=== PATIENT | male | born 1935 | race Caucasian/White ===

== ENCOUNTER 2021-02-12 20:42 | Inpatient (IN) | payer MEDICARE, SELFPAY ==
[2021-02-12] VITALS (17 sets, daily range): BP systolic 120–138; BP diastolic 66–92; PULSE 84–101; RESP 10–24; TEMP 36.8; O2SAT 96–100
--- NOTE | ~2021-02-12 | XR_ITS ---
EXAMINATION: XR chest 2V DATE: 02/19/2021 12:08 INDICATION: Atelectasis TECHNIQUE: frontal and lateral views of the chest were obtained. COMPARISON: Chest radiograph dated 02/17/21 FINDINGS: Persistent airspace opacities along the right lung base without evident silhouetting of the diaphragm or intrapulmonary correlate on the lateral projection and favor a prominent left paracardial fat pad over atelectasis or pneumonia. Left lung remains clear. No pulmonary edema, pleural effusion or pneu mothorax. Cardiomegaly. Median sternotomy wires, ostial markers and mediastinal surgical clips consis tent with prior coronary artery bypass grafting. Mild thoracic spondylosis. IMPRESSION: 1. Persistent opacities at the right lung base and favor left paracardial fat pad over atelectasis or pneumonia. 2. Cardiomegaly. Reviewed, dictated and finalized at location A. IMPRESSION: 1. Persistent opacities at the right lung base and favor left paracardial fat p ad over atelectasis or pneumonia. 2. Cardiomegaly.
--- NOTE | ~2021-02-12 | CT_ITS ---
EXAMINATION: CT brain wo con DATE: 02/12/2021 21:51 INDICATION: Altered mental status. TECHNIQUE: Computed tomography (CT) of the head was performed without intravenous contrast. The mA wa s adjusted according to patient size. Iterative reconstruction technique was employed. The dose-lengt h product was 605.33 mGy-cm. COMPARISON: Head CT 07/31/2016, brain MRI 08/01/2016 FINDINGS: There are scattered areas of low attenuation in the cerebral white matter. There is a small old infarct in right frontoparietal region. There is an old infarct in right parietal occipital kalee on. There is no intracranial hemorrhage or abnormal mass lesion. The ventricles are normal in size. T here is mild mucosal thickening in the ethmoid sinuses. The orbits are normal. The mastoid air cells are normal. IMPRESSION: 1. 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 2. Moderate nonspecific cerebral white matter disease, which likely represents chronic small vessel i schemic disease. Reviewed, dictated and finalized at location A. IMPRESSION: 1. 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 2. Moderate nonspecific cerebral white matter disease, which likely represents chronic small vessel ischemic disease.
--- NOTE | ~2021-02-12 | CT_ITS ---
EXAMINATION: CT abdomen pelvis wo con DATE: 02/13/2021 00:13 INDICATION: Abdominal pain. Nausea and vomiting. TECHNIQUE: Computed tomography (CT) of the abdomen and pelvis was performed without intravenous contr ast. Automated exposure control and iterative reconstruction technique were employed. The dose-length product was 894.59 mGy-cm. COMPARISON: None. FINDINGS: The visualized portions of the lung bases demonstrate mild atelectasis. There is mild eleva tion of left hemidiaphragm. The heart size is normal. There is subendocardial fat in the anterior and anteroseptal hunt of left ventricle, consistent with old infarct. There are coronary artery calcifi cations. There are changes of coronary artery bypass grafting. No pericardial effusion. The liver, ga llbladder, spleen, and adrenal glands are normal. There are calcifications and cystic lesions measuri ng up to 2.0 cm in the pancreas, consistent with chronic pancreatitis. There are cysts in the kidneys measuring up to 10.4 cm on the right. There are 2 mm and 4 mm stones in right kidney. There is a rig ht internal ureteral stent with distal tip in the distal ureter. There are 2 mm and 8 mm stones in le ft kidney. There is a left internal ureteral stent in expected position. There are approximately 3 bl adder stones in a cluster measuring up to 6 mm. The bladder is decompressed by a Foster catheter. The prostate is mildly enlarged. There are no dilated loops of bowel. There is mild fat stranding adjacen t to the sigmoid colon and terminal ileum, likely old fat necrosis. There are no pathologically enlar ged lymph nodes. There is no free intraperitoneal fluid. There is a right inguinal hernia containing fat. There is a left inguinal hernia containing nonobstructed sigmoid colon. There is severe lumbar s pondylosis and thoracic spondylosis. IMPRESSION: 1. Left inguinal hernia containing nonobstructed sigmoid colon. 2. Right inguinal hernia containing fat. 3. Nonobstructing bilateral kidney stones. Bladder stones. Reviewed, dictated and finalized at location A.
--- NOTE | ~2021-02-12 | XR_ITS ---
EXAMINATION: XR chest 1V portable DATE: 02/17/2021 05:54 INDICATION: Shortness of breath. TECHNIQUE: A single frontal view of the chest was obtained. COMPARISON: Chest 2 views 02/13/2021, CT abdomen and pelvis 02/13/2021 FINDINGS: There are mild airspace opacities in right lower lung zone. No pleural effusion or pneumoth orax. The heart size is normal. Median sternotomy wires and mediastinal surgical clips are seen, like ly from prior coronary artery bypass grafting. IMPRESSION: 1. Worsened mild airspace opacities in right lower lung zone, consistent with atelectasis versus pneu monia. Reviewed, dictated and finalized at location A. IMPRESSION: 1. Worsened mild airspace opacities in right lower lung zone, consistent with a telectasis versus pneumonia.
--- NOTE | ~2021-02-12 | XR_ITS ---
EXAMINATION: XR chest 2V DATE: 02/13/2021 00:19 INDICATION: Sepsis. Confusion. TECHNIQUE: Frontal and lateral views of the chest were obtained. COMPARISON: Chest 2 views 04/05/2013, CT abdomen and pelvis 02/13/2021 FINDINGS: There is chronic mild elevation of left hemidiaphragm. There is mild atelectasis at the elsa g bases. No pleural effusion or pneumothorax. The heart size is normal. Median sternotomy wires and m ediastinal surgical clips are seen, likely from prior coronary artery bypass grafting. IMPRESSION: 1. Mild atelectasis at the lung bases. Reviewed, dictated and finalized at location A.
--- NOTE | 2021-02-12 20:55 | ECG_ITS ---
Measurements Intervals Howe Rate: 102 P: 62 KS: 197 QRS: -4 QRSD: 121 T: 155 QT: 332 QTc: 433 Interpretive Statements SINUS OR ECTOPIC ATRIAL TACHYCARDIA FREQUENT VENTRICULAR PREMATURE COMPLEXES INTRAVENTRICULAR CONDUCTION DELAY MINIMAL Q WAVES- ANTEROLATERAL LEADS INFERIOR INFARCT, AGE INDETERMINATE BASELINE ARTIFACT- II, III, AVF ABNORMAL ECG Electronically Signed On 02-13-2021 7:06:30 CDT by Chris Vickers D.O.
--- NOTE | 2021-02-12 20:55 | ED.WEAKNESS ---
HPI - Weakness General Chief complaint: Weakness Stated complaint: weakness Time Seen by Provider: 02/12/21 20:55 History of Present Illness HPI Narrative: He recently presented to [facility] for shingles. He completed treatment with valacyclovir. While in the hospital there he was found to have large bilateral kidney stones. He was then transferred to [facility] for lithotripsy and ureteral stent placement. Required benz placement for urinary retention. Since discharge he has become increasingly weak and confused. Today he pulled out his benz and has not been able to pass urine since. No fever, CP, SOB Related Data Home Medications Medication Instructions Recorded Confirmed clopidogrel 02/12/21 doxazosin mg 02/12/21 empagliflozin [Jardiance] mg 02/12/21 finasteride mg 02/12/21 furosemide 02/12/21 gabapentin 02/12/21 isosorbide mononitrate mg PO 02/12/21 lisinopril 02/12/21 rosuvastatin mg 02/12/21 valacyclovir 02/12/21 Allergies Allergy/AdvReac Type Severity Reaction Status Date / Time No Known Allergies Allergy Unknown Verified 02/12/21 20:46 Review of Systems Review of Systems: ROS unobtainable: Yes unobtainable due to medical condition [facility] Past Medical History Medical History (Updated 02/12/21 @ 22:59 by Golden Ordonez MD) BPH (benign prostatic hyperplasia) CHF (congestive heart failure) HTN (hypertension) Kidney stone Surgical History Surgical History (Updated 02/12/21 @ 22:56 by Golden Ordonez MD) H/O lithotripsy Social History Social History Gender identity (if verbalized by the patient): Male Exam Const: General: no acute distress Nutritional Appearance: well nourished Orientation/consciousness: confusion Other: listless. lethargic HENMT: Mouth: Yes dry mucous membranes Eyes: Pupils: Equal, round and reactive pupils present Resp: Effort & Inspection: normal respiratory effort Auscultation: clear to auscultation bilaterally Cardio: Rate: regular rate Rhythm: regular rhythm GI: GI Palp: Yes Soft to palpation : General: Yes Bladder palpation abnormal distended and tender Skin: General skin exam: normal color Neuro: General: moves all extremities, no focal motor deficits and CN's II-XI intact bilaterally Speech: normal speech Other: oriented x2 Extrem: General: no edema Course Vital Signs Vital signs: Vital Signs Temperature 36.8 C 02/12/21 20:48 Pulse Rate 100 02/12/21 20:48 Respiratory Rate 17 02/12/21 20:48 Blood Pressure 138/92 H 02/12/21 20:48 Pulse Oximetry 96 02/12/21 20:48 Temperature 36.8 C 02/12/21 20:58 Pulse Rate 86 02/12/21 22:01 Respiratory Rate 18 02/12/21 22:01 Blood Pressure 121/80 02/12/21 22:00 Pulse Oximetry 100 02/12/21 22:01 MDM - Weakness Differential Diagnosis Differential diagnosis: Likely other (UTI, urinary retention, dehydration, sepsis, shingles) Medical Records Attestation: I reviewed the patient's medical records. Lab Data Attestation: I reviewed the patient's lab results. Result diagrams: 02/12/21 21:02 02/12/21 21:33 Labs: Lab Results 02/12/21 02/12/21 02/12/21 Range/Units 21:02 21:33 21:33 WBC 21.0 H (4.5-10.0) K/mm3 RBC 4.40 L (4.6-6.20) M/mm3 Hgb 14.1 (14.0-18.0) g/dL Hct 41.9 L (42.0-52.0) % MCV 95.2 (80-100) fl MCH 32.0 (26-34) pg MCHC 33.7 (32-36) g/dl RDW 14.5 (11.5-14.5) % Plt Count 372 (150-375) k/mm3 MPV 9.9 (7.4-10.4) fl Immature Gran % (Auto) 0.5 (0-0.5) % Neut % (Auto) 90.5 H (45.5-73.1) % Lymph % (Auto) 2.9 L (18.3-44.2) % Sumner % (Auto) 5.7 (2.6-8.5) % Eos % (Auto) 0.3 (0-4.4) % Baso % (Auto) 0.1 L (0.2-1.2) % Lymph # (Auto) 0.60 L (0.9-3.2) K/mm3 Sumner # (Auto) 1.2 H (0.1-0.6) K/mm3 Eos # (Auto) 0.1 (0-0.3) K/mm3 Baso # (Auto) 0.0 (0.0-0.1) K/mm3 Abs Immat Gran (auto) 0.11 H (0.00-0.031) K/mm3
[2021-02-12 21:08] LABS: Basophils Percent Auto 0.1 % (0.2-1.2); Eosinophils Absolute Auto 0.1 K/mm3 (0-0.3); Eosinophils Percent Auto 0.3 % (0-4.4); Hematocrit 41.9 % (42.0-52.0); Hemoglobin 14.1 g/dL (14.0-18.0); Immature Granulocyte Absolute 0.11 K/mm3 (0.00-0.031); Immature Granulocyte Percent A 0.5 % (0-0.5); Lymphocytes Percent Auto 2.9 % (18.3-44.2); Mean Corpuscular HGB Conc 33.7 g/dl (32-36); Mean Corpuscular Volume 95.2 fl (80-100); Mean Platelet Volume 9.9 fl (7.4-10.4); Monocytes Absolute Auto 1.2 K/mm3 (0.1-0.6); Monocytes Percent Auto 5.7 % (2.6-8.5); Neutrophils Percent Auto 90.5 % (45.5-73.1); Platelet Count Result 372 k/mm3 (150-375); Red Cell Distribution Width 14.5 % (11.5-14.5)
[2021-02-12] MEDS: SODIUM CHLORIDE 0.9% IV 500 ML 999 ML IV CONT (21:23)
[2021-02-12 21:50] LABS: Add Urine Microscopic? YES; Appearance Urine Cloudy (Clear); Bacteria Urine Trace /hpf; Bilirubin Urine Negative (Negative); Blood Urine 3+ (Negative); Color Urine Yellow (Yellow); Glucose Urine UA 3+ mg/dL (Negative); Ketones Urine Negative (Negative); Leukocyte Esterase Ur 1+ LEU/UL (Negative); Mucus Urine Rare /lpf; Nitrate Urine Negative (Negative); Protein Urine 2+ mg/dL (Negative); RBC Urine >75 /hpf (0-2); Squamous Epithelial Cell Urine Rare /hpf (Few); Urobilinogen Urine Negative mg/dL (<2.0); WBC Urine 16-20 /hpf
[2021-02-12 21:52] LABS: Alanine Aminotransferase 19 U/L (4-50); Albumin Level 2.8 g/dL (3.5-5.1); Alkaline Phosphatase 101 U/L (38-126); Anion Gap 2 mmol/L (8-16); Aspartate Amino Transferase 20 U/L (17-59); Bilirubin,Total 0.5 mg/dL (0.2-1.3); Blood Urea Nitrogen 67 mg/dL (9-20); Calcium 9.6 mg/dL (8.4-10.2); Carbon Dioxide 28 mmol/L (22-30); Chloride 106 mmol/L (98-107); Estimated CRCL calculation 30 ml/min; Estimated Glomerular Filt Rate 41; Glucose 253 mg/dL (75-110); Potassium 4.8 mmol/L (3.4-5.0); Sodium 136 mmol/L (137-145)
--- NOTE | 2021-02-12 23:40 | PM.IMHP ---
H&P: HPI History of Present Illness Date/Time: 02/12/21 23:40 Chief Complaint: confusion, urinary retention Narrative: 85 yo male ru presents with increased confusion, agitation. he was recently diagnosed with left upper chest and back shingles which has caused significant amount of pain. he was started on antiviral along with hydrocodone and gabapentin. He was subsequenlty diagnsoed with large bialteral kidney stones and then was admitted at [facility] for lithotripsy which was done and ureteral stent was placed. He had BPH and bud had a benz cathtere placement there and was disccahrged on it. With increased agitation and confusion, he had pulled his benz out. He also started having multiple episodes of vomiting today and hence was brought to the hospital for further evaluation. He denies having any fever, chills, no sob, chest pain. He rpeorts his abdomen is sore but denies any nausea. He is significnatly distressed with porsche severe pain that he gets from his shingles. He has also been not sleeping well over the past few days and also has been having poor po intake. Review of Systems Constitutional: Constitutional: Denies body ache(s), Denies chills, Reports difficulty sleeping, Reports fatigue, Reports lethargy, Denies night sweats and Reports weakness Eyes: Eyes: Denies blurry vision and Denies photophobia ENT: Denies nasal congestion and Denies nasal discharge Cardiovascular: Cardiovascular: Denies chest pain, Denies diaphoresis and Denies palpitations Respiratory: Respiratory: Denies cough and Denies dyspnea Gastrointestinal: Gastrointestinal: Reports abdominal pain, Reports constipation, Denies diarrhea, Reports nausea and Reports vomiting Genitourinary: Genitourinary: Reports hematuria Musculoskeletal: Musculoskeletal: Denies back pain and Denies neck pain Integumentary/Breasts: Skin/Breast: Reports dry skin, Reports rash and Reports skin pain Neurologic: Denies Abnormal speech present, Reports confusion and Denies headache(s) Psychiatric: Psychiatric: Reports behavioral changes and Reports confusion PMF Past Medical History Medical History (Updated 02/12/21 @ 23:56 by Ulysses Araiza MD) BPH (benign prostatic hyperplasia) CHF (congestive heart failure) HTN (hypertension) Kidney stone Surgical History Surgical History (Updated 02/12/21 @ 22:56 by Golden Ordonez MD) H/O lithotripsy Social History Social History Gender identity (if verbalized by the patient): Male Meds Home Medications and Allergies Home Medications Medication Instructions Recorded Confirmed Type clopidogrel 02/12/21 History doxazosin mg 02/12/21 History empagliflozin [Jardiance] mg 02/12/21 History finasteride mg 02/12/21 History furosemide 02/12/21 History gabapentin 02/12/21 History isosorbide mononitrate mg PO 02/12/21 History lisinopril 02/12/21 History rosuvastatin mg 02/12/21 History valacyclovir 02/12/21 History Allergies Allergy/AdvReac Type Severity Reaction Status Date / Time No Known Allergies Allergy Unknown Verified 02/12/21 20:46 Vital Signs Vital Signs - 24 hr 02/12/21 20:48 02/12/21 20:54 02/12/21 20:58 Temperature 98.3 F 98.3 F Pulse Rate 100 98 98 Respiratory Rate 17 17 Blood Pressure 138/92 H 138/92 H Pulse Oximetry 96 96 02/12/21 21:21 02/12/21 21:48 02/12/21 21:55 Temperature Pulse Rate 88 86 84 Respiratory Rate 14 10 L 13 Blood Pressure 128/66 Pulse Oximetry 100 100 02/12/21 22:00 02/12/21 22:01 02/12/21 22:15 Temperature Pulse Rate 84 86 94 Respiratory Rate 19 18 24 H Blood Pressure 121/80 Pulse Oximetry 99 100 02/12/21 22:30 02/12/21 22:45 02/12/21 22:52 Temperature Pulse Rate 91 88 89 Respiratory Rate 19 17 15 Blood Pressure 120/74 Pulse Oximetry 97 97 99 02/12/21 23:00 Temperature Pulse Rate 90 Respiratory Rate 22 H Blood Pressure Pulse Oximetry Exam Narrative: Exam Narrative: Const:
[2021-02-13] VITALS (13 sets, daily range): BP systolic 78–144; BP diastolic 47–77; PULSE 37–94; RESP 10–20; TEMP 36.1–37.1; O2SAT 70–100; BMI 23.7
[2021-02-13 00:05] LABS: Hemoglobin A1C 9.6 % (<5.7)
--- NOTE | 2021-02-13 00:45 | ADMGEN ---
This patient, Ant Sher, was admitted to 3 [facility] Surg Room 330-01 at 0020. Patient/family oriented to hospital policies and general routines including ID bracelet, bed and alarms, visiting hours, pain management, procedures, bathroom and other care routines, personal items, smoking policy, room service/diet, and visiting hours. Information on how to activate the Rapid Response Team has been discussed. Patient/Family are encouraged to report perceived risks to care and to ask questions if they do not understand what they are told or what they should do.
[2021-02-13 01:32] LABS: Lactic Acid Reflex 1.4 mmol/L (0.7-2.1)
[2021-02-13] MEDS: SODIUM CHLORIDE 0.9% IV 1,000 ML 100 ML IV CONT (02:45)
[2021-02-13 06:02] LABS: Basophils Percent Auto 0.1 % (0.2-1.2); Eosinophils Absolute Auto 0.1 K/mm3 (0-0.3); Eosinophils Percent Auto 0.7 % (0-4.4); Hematocrit 40.1 % (42.0-52.0); Hemoglobin 13.5 g/dL (14.0-18.0); Immature Granulocyte Absolute 0.12 K/mm3 (0.00-0.031); Immature Granulocyte Percent A 0.7 % (0-0.5); Lymphocytes Absolute Auto 0.97 K/mm3 (0.9-3.2); Lymphocytes Percent Auto 5.4 % (18.3-44.2); Mean Corpuscular HGB Conc 33.7 g/dl (32-36); Mean Corpuscular Hemoglobin 32.1 pg (26-34); Mean Corpuscular Volume 95.5 fl (80-100); Mean Platelet Volume 9.8 fl (7.4-10.4); Monocytes Absolute Auto 1.1 K/mm3 (0.1-0.6); Monocytes Percent Auto 6.3 % (2.6-8.5); Neutrophils Absolute Auto 15.8 K/mm3 (1.3-6.7); Neutrophils Percent Auto 86.8 % (45.5-73.1); Platelet Count Result 329 k/mm3 (150-375); Red Cell Distribution Width 14.6 % (11.5-14.5); White Blood Count 18.1 K/mm3 (4.5-10.0)
[2021-02-13 06:19] LABS: Anion Gap 4 mmol/L (8-16); Blood Urea Nitrogen 62 mg/dL (9-20); Calcium 9.1 mg/dL (8.4-10.2); Carbon Dioxide 22 mmol/L (22-30); Chloride 109 mmol/L (98-107); Estimated CRCL calculation 40 ml/min; Estimated Glomerular Filt Rate 53; Glucose 242 mg/dL (75-110); Potassium 4.4 mmol/L (3.4-5.0); Sodium 135 mmol/L (137-145)
[2021-02-13 08:01] LABS: Glucose Point of Care 264 (65-105)
[2021-02-13] MEDS: INSULIN ASPART (*BKC) 100 UNITS/ML SUB-Q ×3 (09:08→17:43)
[2021-02-13] MEDS: DOXAZOSIN MESYLATE 4 MG TABLET PO (09:10)
[2021-02-13] MEDS: ROSUVASTATIN 10 MG TABLET 20 MG PO (09:10)
[2021-02-13] MEDS: FINASTERIDE 5 MG TABLET PO (09:10)
[2021-02-13] MEDS: lisinopriL 20 MG TABLET PO (09:10)
[2021-02-13] MEDS: ENOXAPARIN 40 MG/0.4 ML SYRINGE SUB-Q (09:11)
--- NOTE | 2021-02-13 10:16 | P.PNIM_ITS ---
Progress Note: A&P Assessment and Plan (1) Severe sepsis: Code(s): A41.9 - Sepsis, unspecified organism; R65.20 - Severe sepsis without septic shock Status: Acute Assessment and Plan: Met SIRS criteria with leukocytosis and tachycardia while in ED with urinary as suspected source. Lacitic acid WNL. Patient started on Rocephin in ED (1 dose); this was broadened to Zosyn and Vanc (vanc d/c today). BCx and UCx obtained and pending * Continue for treatment of UTI for now; see below * Will do IV fluids; d/c after completion of current bag as to avoid volume overload with CHF * Monitor for improvement (2) UTI (urinary tract infection): Code(s): N39.0 - Urinary tract infection, site not specified Status: Acute Assessment and Plan: UA suspicious for UTI. UCx pending. Recent urological procedure, see below. Patient received one dose Rocephin in ED; broadened to Zosyn and vanc when admitted; vanc has been discontinued today. * Continue Zosyn for now * Await UCx and BCx; tailor antibiotics to culture * Monitor closely (3) Multiple kidney stones: Code(s): N20.0 - Calculus of kidney Status: Acute Assessment and Plan: Patient recently underwent lithotripsy and left ureteral stent placement at [facility]. Urology consulted from ED and appreciate input. CT abd/pelvis shows multiple nonobstructing b/l stones; stent in expected position; incidental b/l inguinal hernias noted - left contains nonobstructed colon, right contains fat * Await further rec from Urology * Monitor * Treat for UTI as noted above (4) REX (acute kidney injury): Code(s): N17.9 - Acute kidney failure, unspecified Status: Acute Assessment and Plan: Likely secondary to acute dehydration, sepsis. Cr improved to 1.30 today with IVF * Hold Lasix * Resume Lisinopril * Complete bag of IVF today as to avoid volume overload * Monitor (5) Acute urinary retention: Code(s): R33.8 - Other retention of urine Status: Acute Assessment and Plan: Likely from BPH * Continue Foster * Continue Proscar * Appreciate Urology input (6) Generalized weakness: Code(s): R53.1 - Weakness Status: Acute Assessment and Plan: Likely secondary to infection * PT/OT eval (7) Shingles: Code(s): B02.9 - Zoster without complications Status: Acute Assessment and Plan: * Treat symptomatically and with local wound care * Will consider Wound Care consult for arm lesions (8) Acute encephalopathy: Code(s): G93.40 - Encephalopathy, unspecified Status: Acute Assessment and Plan: Likely secondary to narcotics and gabapentin. Seems to be more lucid today * d/c haloperidol * Hold gabapentin * Will reduce narcotics; attempt to limit narcotics if possible * ST eval today; appreciate input. Likely will reassess in next several days (9) Abdominal pain: Code(s): R10.9 - Unspecified abdominal pain Status: Acute Assessment and Plan: Continues but improved; likely from stones. See CT abd/pelvis above * see above a/p (10) Cerebral infarction: Code(s): I63.9 - Cerebral infarction, unspecified Status: Acute
--- NOTE | 2021-02-13 10:16 | PM.IMPN ---
Progress Note: A&P Assessment and Plan (1) Severe sepsis: Code(s): A41.9 - Sepsis, unspecified organism; R65.20 - Severe sepsis without septic shock Status: Acute Assessment and Plan: Met SIRS criteria with leukocytosis and tachycardia while in ED with urinary as suspected source. Lacitic acid WNL. Patient started on Rocephin in ED (1 dose); this was broadened to Zosyn and Vanc (vanc d/c today). BCx and UCx obtained and pending Continue for treatment of UTI for now; see below Will do IV fluids; d/c after completion of current bag as to avoid volume overload with CHF Monitor for improvement (2) UTI (urinary tract infection): Code(s): N39.0 - Urinary tract infection, site not specified Status: Acute Assessment and Plan: UA suspicious for UTI. UCx pending. Recent urological procedure, see below. Patient received one dose Rocephin in ED; broadened to Zosyn and vanc when admitted; vanc has been discontinued today. Continue Zosyn for now Await UCx and BCx; tailor antibiotics to culture Monitor closely (3) Multiple kidney stones: Code(s): N20.0 - Calculus of kidney Status: Acute Assessment and Plan: Patient recently underwent lithotripsy and left ureteral stent placement at [facility]. Urology consulted from ED and appreciate input. CT abd/pelvis shows multiple nonobstructing b/l stones; stent in expected position; incidental b/l inguinal hernias noted - left contains nonobstructed colon, right contains fat Await further rec from Urology Monitor Treat for UTI as noted above (4) REX (acute kidney injury): Code(s): N17.9 - Acute kidney failure, unspecified Status: Acute Assessment and Plan: Likely secondary to acute dehydration, sepsis. Cr improved to 1.30 today with IVF Hold Lasix Resume Lisinopril Complete bag of IVF today as to avoid volume overload Monitor (5) Acute urinary retention: Code(s): R33.8 - Other retention of urine Status: Acute Assessment and Plan: Likely from BPH Continue Foster Continue Proscar Appreciate Urology input (6) Generalized weakness: Code(s): R53.1 - Weakness Status: Acute Assessment and Plan: Likely secondary to infection PT/OT eval (7) Shingles: Code(s): B02.9 - Zoster without complications Status: Acute Assessment and Plan: Treat symptomatically and with local wound care Will consider Wound Care consult for arm lesions (8) Acute encephalopathy: Code(s): G93.40 - Encephalopathy, unspecified Status: Acute Assessment and Plan: Likely secondary to narcotics and gabapentin. Seems to be more lucid today d/c haloperidol Hold gabapentin Will reduce narcotics; attempt to limit narcotics if possible ST eval today; appreciate input. Likely will reassess in next several days (9) Abdominal pain: Code(s): R10.9 - Unspecified abdominal pain Status: Acute Assessment and Plan: Continues but improved; likely from stones. See CT abd/pelvis above see above a/p (10) Cerebral infarction: Code(s): I63.9 - Cerebral infarction, unspecified Status: Acute Assessment and Plan: Plavix has been held for possible procedure (11) Diabetes mellitus: Code(s): E11.9 - Type 2 diabetes mellitus without complications Status: Acute Assessment and Plan: A1c 9.6. Accuchecks ACHS, hypoglycemia protocol, correctional insulin, diabetic diet Jardiance held as this is nf Will need f/u with PCP for further adustments in me
[2021-02-13] MEDS: ISOSORBIDE MONONITRATE 30 MG TAB.ER.24H PO (11:38)
[2021-02-13 12:28] LABS: Glucose Point of Care 322 (65-105)
[2021-02-13] MEDS: HYDROcodone/acetaminophen (*CRX) 5-325 MG TABLET 1 TAB PO (12:33)
[2021-02-13] MEDS: MORPHINE SULFATE (*CRX) 2 MG/ML INJ IV PUSH (12:34)
--- NOTE | 2021-02-13 13:07 | WPDURCON ---
Assessment and Plan Assessment and plan (1) Multiple kidney stones: Code(s): N20.0 - Calculus of kidney Status: Acute Assessment and Plan: Will plan to remove bilateral ureteral stents later this week while in house, once infection improves and cultures are resulted. Obtain Consent: Cystoscopy, bilateral ureteroscopy, bilateral stent removal, bilateral retrograde pyelogram. Will schedule with OR, likely will be done with DR. Shultz. (2) REX (acute kidney injury): Code(s): N17.9 - Acute kidney failure, unspecified Status: Acute (3) UTI (urinary tract infection): Code(s): N39.0 - Urinary tract infection, site not specified Status: Acute Assessment and Plan: Continue Zosyn, WBC is improving, ok to stop Vancomycin. (4) Acute urinary retention: Code(s): R33.8 - Other retention of urine Status: Acute Assessment and Plan: Continue benz catheter, will need to be changed monthly. If patient continues to try to pull it out, we can try a voiding trial and assess PVR. Urology Consult Note HPI Date Seen: 02/13/21 Requesting Physician: Ady Carmichael PA-C Primary Care Provider: Ady Payne MD Consult Narrative Narrative: Ant Sher is a 85 year old male who was seen in the ER yesterday for weakness and worsening confusion. He pulled his benz out at home as well. He was previously seen in the ER at [facility] for shingles, but incidentally was found to have bilateral stones causing hydronephrosis and was transferred to [facility] where Dr. Carrasco performed a cystoscopy, bilateral ureteroscopy and stone extraction with bilateral stent placement on 01/31/2021. He was then sent home where he lives with his who has dementia and end stage CKD. He also suffers from dementia and is cared for 24/06 by family and paid caregivers. He was scheduled for a follow up today with Dr. Carrasco for stent removal which was cancelled d/t his hospitalization. He currently has a WBC of 18.1 which is trending down since starting Vancomycin and Zosyn. His Creatinine is 1.30, he is afebrile but is hypertensive which is daughter says is not normal for him. He is usually well controlled with BP meds. His blood cultures and urine cultures are pending, UA is suggestive of a UTI, but it is difficult to tell as he has bilateral stents which can portray infected appearing urine. His CT shows non obstructive kidney stones 2mm and 8mm in the left kidney and 2 and 4mm in the right kidney, as well as 3 bladder stones measuring up to 6mm, as well as bilateral stents in place. He is unable to provide any medical history and states he is not in pain but is very fatigued. He does c/o pain from his shingles in the left axilla. I called his daughter Kaity who provided all of his medical history to me as she is a caregiver and POA. Review of Systems Review of Systems: ROS unobtainable: Yes unobtainable due to mental status Constitutional: Constitutional: Reports fatigue Musculoskeletal: Musculoskeletal: Reports other (left axilla pain) [facility] Past Medical History Medical History BPH (benign prostatic hyperplasia) CHF (congestive heart failure) HTN (hypertension) Kidney stone Surgical History Surgical History H/O lithotripsy Social History Social History Smoking status: Unknown if ever smoked Second hand tobacco smoke exposure: No Alcohol intake: unknown Substance use: never Gender identity (if verbalized by the patient): Male Spiritual care concerns: No Meds Home Medications and Allergies Home Medications Medication Instructions Recorded Confirmed Type clopidogrel [Plavix] 75 mg PO DAILY 02/12/21 02/13/21 History doxazosin 4 mg PO DAILY 02/12/21 02/13/21 History empagliflozin [Jardiance] 10 mg PO DAILY
--- NOTE | 2021-02-13 14:11 | PCPTNOTE ---
Attempted PT eval. Pt was sleeping and daughter refused therapy. Will try again tomorrow.
[2021-02-13] MEDS: SILVERGEL (ELTA) 45 ML 1 APPLIC TOPICAL (15:59)
[2021-02-13 16:54] LABS: Glucose Point of Care 265 (65-105)
[2021-02-13] MEDS: predniSONE 10 MG TABLET PO (17:34)
[2021-02-13] MEDS: METOPROLOL TARTRATE 50 MG TAB PO ×2 (17:38→20:04)
[2021-02-13 20:53] LABS: Glucose Point of Care 157 (65-105)
[2021-02-13] MEDS: SODIUM CHLORIDE 0.9% IV 500 ML 999 ML (22:19)
[2021-02-13] MEDS: SODIUM CHLORIDE 0.9% IV 500 ML 999 ML IV CONT (22:19)
[2021-02-14] VITALS (9 sets, daily range): BP systolic 79–104; BP diastolic 49–62; PULSE 59–77; RESP 16–20; TEMP 36.1–36.4; O2SAT 96–99
--- NOTE | 2021-02-14 04:17 | PC.NURSE ---
Rechecked patients BP after second IV bolus at 22:53 and he was 90/60. Left message with Dr. Carnes to update him. Rechecked patient at 04:18 after little improvement in the 00:00 vitals, patient was 94/54. Did not receive further instruction from the doctor, patient feeling much more warm to the touch and is more arousable now, all other VS are unremarkable. Patient still on oxygen at 2L, satting @ 98% at this point. Pulse was 56 bpm. -AEW RN
--- NOTE | 2021-02-14 05:01 | PC.NURSE ---
Changed Mr. Sher to standard precautions per Elena (greenhouse technician) who spoke to infection control, because the patient finished his course of anti-viral medications. -AEW RN
[2021-02-14 06:27] LABS: Basophils Percent Auto 0.1 % (0.2-1.2); Eosinophils Percent Auto 0.1 % (0-4.4); Hematocrit 31.9 % (42.0-52.0); Hemoglobin 10.4 g/dL (14.0-18.0); Immature Granulocyte Absolute 0.09 K/mm3 (0.00-0.031); Immature Granulocyte Percent A 0.6 % (0-0.5); Lymphocytes Absolute Auto 0.53 K/mm3 (0.9-3.2); Lymphocytes Percent Auto 3.4 % (18.3-44.2); Mean Corpuscular HGB Conc 32.6 g/dl (32-36); Mean Corpuscular Hemoglobin 31.3 pg (26-34); Mean Corpuscular Volume 96.1 fl (80-100); Mean Platelet Volume 10.1 fl (7.4-10.4); Monocytes Absolute Auto 0.7 K/mm3 (0.1-0.6); Monocytes Percent Auto 4.6 % (2.6-8.5); Neutrophils Absolute Auto 14.2 K/mm3 (1.3-6.7); Neutrophils Percent Auto 91.2 % (45.5-73.1); Platelet Count Result 267 k/mm3 (150-375); Red Blood Count 3.32 M/mm3 (4.6-6.20); Red Cell Distribution Width 14.8 % (11.5-14.5); White Blood Count 15.6 K/mm3 (4.5-10.0)
[2021-02-14 06:36] LABS: Anion Gap 1 mmol/L (8-16); Blood Urea Nitrogen 70 mg/dL (9-20); Calcium 8.2 mg/dL (8.4-10.2); Carbon Dioxide 25 mmol/L (22-30); Chloride 111 mmol/L (98-107); Estimated CRCL calculation 29 ml/min; Estimated Glomerular Filt Rate 36; Glucose 136 mg/dL (75-110); Magnesium 2.2 mg/dL (1.6-2.3); Potassium 4.5 mmol/L (3.4-5.0); Sodium 137 mmol/L (137-145)
[2021-02-14 08:19] LABS: Glucose Point of Care 124 (65-105)
[2021-02-14] MEDS: SODIUM CHLORIDE 0.9% IV 1,000 ML 100 ML IV CONT (09:19)
[2021-02-14] MEDS: ROSUVASTATIN 10 MG TABLET 20 MG PO (09:29)
[2021-02-14] MEDS: predniSONE 10 MG TABLET PO (09:30)
[2021-02-14] MEDS: FINASTERIDE 5 MG TABLET PO (09:30)
[2021-02-14] MEDS: ENOXAPARIN 40 MG/0.4 ML SYRINGE SUB-Q (09:30)
[2021-02-14] MEDS: DOXAZOSIN MESYLATE 4 MG TABLET PO (09:30)
[2021-02-14] MEDS: SILVERGEL (ELTA) 45 ML 1 APPLIC TOPICAL (09:31)
--- NOTE | 2021-02-14 10:34 | PCPTNOTE ---
Attempted PT eval. Donta RN, stated to hold therapy due to low BP. Will try again later today.
--- NOTE | 2021-02-14 10:43 | PM.IMPN ---
Progress Note: A&P Assessment and Plan (1) Severe sepsis: Code(s): A41.9 - Sepsis, unspecified organism; R65.20 - Severe sepsis without septic shock <Caren Kruse PA-C - Last Filed: 02/15/21 07:14> Status: Acute <Caren Kruse PA-C - Last Filed: 02/15/21 07:14> Assessment and Plan: Met SEPSIS criteria with leukocytosis and tachycardia while in ED with urinary as suspected source with recent Cystoscopy with stent placement. Lacitic acid WNL. Patient started on Rocephin in ED and given 1 dose; this was broadened to Zosyn and Vanc (vanc d/c 02/13/21 after 1 dose). BCx pending Urine Culture shows no growth. CXR shows atelectasis at lung bases, patient was placed on oxygen last night after being found to be hypotensive which was believed to be from having Narcotics for pain Continue IV fluids due to hypotension and antibiotics at this time with IV Zosyn Continue monitoring. <Caren Kruse PA-C - Last Filed: 02/15/21 07:14> (2) Hypotension: Code(s): I95.9 - Hypotension, unspecified <Caren Kruse PA-C - Last Filed: 02/15/21 07:14> Status: Acute <Caren Kruse PA-C - Last Filed: 02/15/21 07:14> Assessment and Plan: Patient developed hypotension overnight, a nurse believes it is secondary to giving him narcotic pain medications. He was given fluid boluses with improvement of his blood pressure. Blood pressure this morning was 88/50, and another 500 cc bolus of NS was given and continued with IV fluids 100 cc an hour. Blood pressure improved to 104/62. Continue monitoring <Caren Kruse PA-C - Last Filed: 02/15/21 07:14> (3) REX (acute kidney injury): Code(s): N17.9 - Acute kidney failure, unspecified <Caren Kruse PA-C - Last Filed: 02/15/21 07:14> Status: Acute <Caren Kruse PA-C - Last Filed: 02/15/21 07:14> Assessment and Plan: Likely secondary to acute dehydration, sepsis. Cr increased to 1.80 today most likely secondary to hypotension overnight Continue IV fluids, discontinue Lasix, Potassium and BP medications Lisiniopril and Imdur at this time. Hold Lasix Resume Lisinopril Complete bag of IVF today as to avoid volume overload Monitor <Caren Kruse PA-C - Last Filed: 02/15/21 07:14> (4) UTI (urinary tract infection): Code(s): N39.0 - Urinary tract infection, site not specified <Caren Kruse PA-C - Last Filed: 02/15/21 07:14> Status: Acute <Caren Kruse PA-C - Last Filed: 02/15/21 07:14> Assessment and Plan: UA suspicious for UTI. UCx shows no growth. Patient did have a recent urological procedure, with stent placement. Patient received one dose Rocephin in ED; broadened to Zosyn and vanc when admitted; vanc has been discontinued 02/13/21. Continue Zosyn for now Pending blood culture results. Monitor closely <Caren Kruse PA-C - Last Filed: 02/15/21 07:14> (5) Multiple kidney stones: Code(s): N20.0 - Calculus of kidney <Caren Kruse PA-C - Last Filed: 02/15/21 07:14> Status: Acute <REGINA Brar Last Filed: 02/15/21 07:14> Assessment and Plan: Patient recently underwent lithotripsy and left ureteral stent placement at [facility]. Urology consulted from ED and appreciate input. CT abd/pelvis shows multiple nonobstructing b/l stones; stent in expected position; incidental b/l inguinal hernias noted - left contains nonobstructed colon, right contains fat Await further rec from Urology Monitor Treat for UTI as noted above <Caren Kruse PA-C - Last Filed: 02/15/21 07:14> (6) Acute urinary retention: Code(s): R33.8 - Other retention of urine <Ally
[2021-02-14 11:36] LABS: Glucose Point of Care 138 (65-105)
[2021-02-14] MEDS: GABAPENTIN 100 MG CAPSULE PO ×2 (12:25→17:12)
[2021-02-14 13:38] LABS: CRP 0.7 mg/dL (<1.0)
[2021-02-14 16:46] LABS: Glucose Point of Care 227 (65-105)
[2021-02-14] MEDS: INSULIN ASPART (*BKC) 100 UNITS/ML SUB-Q (17:11)
[2021-02-14 20:24] LABS: Glucose Point of Care 205 (65-105)
[2021-02-15] VITALS (18 sets, daily range): BP systolic 66–131; BP diastolic 30–66; PULSE 77–117; RESP 16–20; TEMP 36.1–37.1; O2SAT 92–100
[2021-02-15] MEDS: ACETAMINOPHEN 325 MG TABLET 650 MG PO (04:16)
[2021-02-15 06:20] LABS: Basophils Percent Auto 0.1 % (0.2-1.2); Eosinophils Absolute Auto 0.4 K/mm3 (0-0.3); Eosinophils Percent Auto 2.7 % (0-4.4); Hematocrit 28.8 % (42.0-52.0); Hemoglobin 9.4 g/dL (14.0-18.0); Immature Granulocyte Absolute 0.06 K/mm3 (0.00-0.031); Immature Granulocyte Percent A 0.5 % (0-0.5); Lymphocytes Absolute Auto 0.71 K/mm3 (0.9-3.2); Lymphocytes Percent Auto 5.6 % (18.3-44.2); Mean Corpuscular HGB Conc 32.6 g/dl (32-36); Mean Platelet Volume 10.1 fl (7.4-10.4); Monocytes Absolute Auto 0.8 K/mm3 (0.1-0.6); Monocytes Percent Auto 6.3 % (2.6-8.5); Neutrophils Absolute Auto 10.8 K/mm3 (1.3-6.7); Neutrophils Percent Auto 84.8 % (45.5-73.1); Platelet Count Result 250 k/mm3 (150-375); Red Blood Count 2.94 M/mm3 (4.6-6.20); Red Cell Distribution Width 14.8 % (11.5-14.5); White Blood Count 12.8 K/mm3 (4.5-10.0)
[2021-02-15 06:32] LABS: Anion Gap -1 mmol/L (8-16); Blood Urea Nitrogen 59 mg/dL (9-20); Calcium 7.5 mg/dL (8.4-10.2); Carbon Dioxide 23 mmol/L (22-30); Chloride 116 mmol/L (98-107); Estimated CRCL calculation 33 ml/min; Estimated Glomerular Filt Rate 41; Glucose 164 mg/dL (75-110); Potassium 4.3 mmol/L (3.4-5.0); Sodium 138 mmol/L (137-145)
--- NOTE | 2021-02-15 07:28 | P.CDI_ITS ---
CDI Query Clarification Request -UTI has been documented -Pt has had indwelling benz catheter and bilateral ureteral stents Please clarify if UTI is: * Associated with benz and/or ureteral stents * Not associated with benz and/or ureteral stents * Unable to determine
--- NOTE | 2021-02-15 07:28 | WPDCDIQUERY2 ---
CDI Query Clarification Request -UTI has been documented -Pt has had indwelling benz catheter and bilateral ureteral stents Please clarify if UTI is: Associated with benz and/or ureteral stents Not associated with benz and/or ureteral stents Unable to determine
[2021-02-15 07:57] LABS: Glucose Point of Care 185 (65-105)
[2021-02-15] MEDS: ROSUVASTATIN 10 MG TABLET 20 MG PO (09:26)
[2021-02-15] MEDS: GABAPENTIN 100 MG CAPSULE PO (09:26)
[2021-02-15] MEDS: FINASTERIDE 5 MG TABLET PO (09:27)
[2021-02-15] MEDS: DOXAZOSIN MESYLATE 4 MG TABLET PO (09:27)
[2021-02-15] MEDS: ENOXAPARIN 40 MG/0.4 ML SYRINGE SUB-Q (09:27)
[2021-02-15] MEDS: SILVERGEL (ELTA) 45 ML 1 APPLIC TOPICAL (09:27)
[2021-02-15 10:51] LABS: Hematocrit 26.6 % (42.0-52.0); Hemoglobin 8.5 g/dL (14.0-18.0)
--- NOTE | 2021-02-15 11:06 | PM.IMPN ---
Progress Note: A&P Assessment and Plan (1) Acute GI bleeding: Code(s): K92.2 - Gastrointestinal hemorrhage, unspecified <Caren Krues PA-C - Last Filed: 02/15/21 13:38> Status: Acute <Caren Kruse PA-C - Last Filed: 02/15/21 13:38> Assessment and Plan: 02/15/2021 I walked to the patient's room where therapy was assisting the patient back into bed because he became lightheaded while trying to get up and go to the bathroom. He ended up having a bowel movement which was melonic in nature, and blood pressure was 70s systolic. Most likely stressed induced gastritis due to recent hospitalization, procedure for kidney stone and stent placement, and a who is currently at home on hospice. The patient was placed in bed and given IV fluid bolus with improvement of his blood pressure. Will continue with IV fluids at 100 cc an hour I follow-up was obtained and positive for acute GI bleed. The patient had not been on a PPI since arrival so IV pantoprazole 40 mg was started q.12 hours. H&H on arrival was normal at 14/41. On 02/14/21 H&H dropped to 10/28, believed to be due to multiple IV fluid boluses due to hypotension overnight, believed to be caused by PO Narcotics that were given due to severe shingles pain. 02/15/21: H&H 9.4/28.8%. Repeat dropped to 8.5/26.6%. 1 unit of PRBCs was ordered GI was consulted. Continue monitoring H&H q4hrs. Transfuse to keep H&H above 7. Discussed with the patients family Kaity who is at bedside who has discussed with her siblings about the patients condition. They would like to keep the patient a DNR and would not like any pressors at this time. Will continue with IV fluids to help with blood pressure control, Blood transfusions, PPI IV and continue monitoring the patient at this time. Will reassess and update the family when more information is available. <Caren Kruse PA-C - Last Filed: 02/15/21 13:38> (2) Severe sepsis: Code(s): A41.9 - Sepsis, unspecified organism; R65.20 - Severe sepsis without septic shock <Caren Juan Kruse PA-C - Last Filed: 02/15/21 13:38> Status: Acute <Caren Kruse PA-C - Last Filed: 02/15/21 13:38> Assessment and Plan: Met SEPSIS criteria with leukocytosis and tachycardia while in ED with urinary as suspected source with recent Cystoscopy with stent placement. Lacitic acid WNL. Patient started on Rocephin in ED and given 1 dose; this was broadened to Zosyn and Vanc (vanc d/c 02/13/21 after 1 dose). BCx negative to date. Urine Culture shows no growth. Continue IV fluids due to hypotension and antibiotics at this time with IV Zosyn Leukocytosis is improving with antibiotics, will continue while hospitalized for total of 7 days Continue monitoring. <Caren Kruse PA-C - Last Filed: 02/15/21 13:38> (3) Hypotension: Code(s): I95.9 - Hypotension, unspecified <Caren Kruse PA-C - Last Filed: 02/15/21 13:38> Status: Acute <Caren Kruse PA-C - Last Filed: 02/15/21 13:38> Assessment and Plan: Patient developed hypotension overnight 02/14/21, a nurse believes it is secondary to giving him narcotic pain medications. He was given fluid boluses with improvement of his blood pressure. Blood pressure this morning was 88/50, and another 500 cc bolus of NS was given and continued with IV fluids 100 cc an hour. Blood pressure improved to 104/62. Patient became hypotensive again this morning with getting up with therapy and had associated melenic stools. Most likely hypotension is due to acute GI bleed and blood-loss. Patient was given IV fluid bolus with improvement of his hypotension at this time, he is also receiving 1 unit of PRBCs will continue monitoring H&H and blood pressures routinely. Continue monitoring <Caren
[2021-02-15 11:07] LABS: IFOB Positive Control Positive; Immunochemical Fecal Occult Bl Positive (N)
[2021-02-15] MEDS: PANTOPRAZOLE SODIUM IV 40 MG VIAL IV PUSH ×2 (11:28→20:48)
[2021-02-15 12:17] LABS: Hematocrit 23.8 % (42.0-52.0); Hemoglobin 7.6 g/dL (14.0-18.0)
[2021-02-15 12:34] LABS: Glucose Point of Care 219 (65-105)
[2021-02-15] MEDS: SODIUM CHLORIDE 0.9% IV 250 ML 30 ML IV CONT (14:43)
[2021-02-15] MEDS: SODIUM CHLORIDE 0.9% IV 1,000 ML 100 ML IV CONT (14:43)
[2021-02-15 17:03] LABS: Basophils Percent Auto 0.1 % (0.2-1.2); Eosinophils Percent Auto 0.3 % (0-4.4); Hematocrit 26.1 % (42.0-52.0); Hemoglobin 8.4 g/dL (14.0-18.0); Immature Granulocyte Absolute 0.09 K/mm3 (0.00-0.031); Immature Granulocyte Percent A 0.8 % (0-0.5); Lymphocytes Absolute Auto 0.32 K/mm3 (0.9-3.2); Lymphocytes Percent Auto 2.7 % (18.3-44.2); Mean Corpuscular HGB Conc 32.2 g/dl (32-36); Mean Corpuscular Hemoglobin 31.9 pg (26-34); Mean Corpuscular Volume 99.2 fl (80-100); Mean Platelet Volume 10.3 fl (7.4-10.4); Monocytes Absolute Auto 0.5 K/mm3 (0.1-0.6); Neutrophils Absolute Auto 10.8 K/mm3 (1.3-6.7); Neutrophils Percent Auto 92.1 % (45.5-73.1); Platelet Count Result 230 k/mm3 (150-375); Red Blood Count 2.63 M/mm3 (4.6-6.20); Red Cell Distribution Width 15.4 % (11.5-14.5); White Blood Count 11.7 K/mm3 (4.5-10.0)
[2021-02-15 17:17] LABS: Alanine Aminotransferase 12 U/L (4-50); Albumin Level 1.9 g/dL (3.5-5.1); Alkaline Phosphatase 53 U/L (38-126); Anion Gap 5 mmol/L (8-16); Aspartate Amino Transferase 15 U/L (17-59); Bilirubin,Total 0.7 mg/dL (0.2-1.3); Blood Urea Nitrogen 75 mg/dL (9-20); Calcium 7.3 mg/dL (8.4-10.2); Carbon Dioxide 17 mmol/L (22-30); Chloride 116 mmol/L (98-107); Estimated CRCL calculation 31 ml/min; Estimated Glomerular Filt Rate 39; Glucose 271 mg/dL (75-110); Potassium 4.8 mmol/L (3.4-5.0); Sodium 138 mmol/L (137-145)
[2021-02-15 17:26] LABS: Glucose Point of Care 248 (65-105)
--- NOTE | 2021-02-15 17:27 | WPDGICN ---
Assessment and Plan Assessment and plan (1) Acute GI bleeding: Code(s): K92.2 - Gastrointestinal hemorrhage, unspecified Status: Acute Assessment and Plan: continue with iv protonix, fluid resuscitation if hb<7 then blood transfusion will do EGD to assess source of bleeding (2) Melena: Code(s): K92.1 - Melena Status: Acute Assessment and Plan: symptomatic anemia supportive care, trend h/h (3) Acute blood loss anemia: Code(s): D62 - Acute posthemorrhagic anemia Status: Acute (4) Hypotension: Code(s): I95.9 - Hypotension, unspecified Status: Acute Assessment and Plan: from bleeding, medical management and egd (5) REX (acute kidney injury): Code(s): N17.9 - Acute kidney failure, unspecified Status: Acute Assessment and Plan: on treatment (6) Multiple kidney stones: Code(s): N20.0 - Calculus of kidney Status: Acute Assessment and Plan: treated with litotripsy and benz in place (7) Acute encephalopathy: Code(s): G93.40 - Encephalopathy, unspecified Status: Acute Assessment and Plan: more confused lately (8) Shingles: Code(s): B02.9 - Zoster without complications Status: Acute (9) Generalized weakness: Code(s): R53.1 - Weakness Status: Acute (10) Cerebral infarction: Code(s): I63.9 - Cerebral infarction, unspecified Status: Acute Assessment and Plan: old infarcts in CT scan GI Consult Note Consult date/time: 02/15/21 17:27 Reason for consult: melena HPI: Ant Sher is a 85 year old male admitted after family noted increased confusion, agitation. History obtained from records and his daughter who is at bedside. Recently diagnosed with left upper chest and back shingles, treated with ntiviral along with hydrocodone and gabapentin, also had large bilateral kidney stones treated with lithotripsy ureteral stent, now benz in place was placed which he pulled out and was replaced again. He was brought here with nausea, vomiting and decrease oral intake. Today staff noted several episodes of dark tarry stool, SBP 80's. Given fluids, iv protonix. He has not had scopes before, no history of gib. Hb down to 7.6 (on admission 14 and slowly trending down), BUN 75, creat 1.7. CT head reviewed, old infarcts in the right frontoparietal region and right parietal occipital region. Review of Systems Constitutional: Constitutional: Reports weakness Eyes: Eyes: Reports no additional eye complaints ENT: Reports system reviewed and no additional complaints, except as documented Cardiovascular: Cardiovascular: Reports no additional cardiovascular complaints Respiratory: Respiratory: Reports no additional respiratory complaints Gastrointestinal: Gastrointestinal: Reports melena, Reports nausea and Reports vomiting Genitourinary: Genitourinary: Reports hematuria Comments: kidney stones Musculoskeletal: Musculoskeletal: Reports back pain Integumentary/Breasts: Comments: shingles Neurologic: Reports confusion Psychiatric: Psychiatric: Reports confusion [facility] Past Medical History Medical History (Updated 02/15/21 @ 17:34 by Randy Amaral MD) Acute blood loss anemia BPH (benign prostatic hyperplasia) Cerebral infarction CHF (congestive heart failure) Diabetes mellitus HTN (hypertension) Kidney stone Melena Surgical History Surgical History H/O lithotripsy Social History Social History Smoking status: Unknown if ever smoked Second hand tobacco smoke exposure: No Alcohol intake: unknown Substance use: never Gender identity (if verbalized by the patient): Male Spiritual care concerns: No Meds Home Medications and Allergies Home Medications Medication Instructions Recorded Confirmed Type clopi
[2021-02-15] MEDS: INSULIN ASPART (*BKC) 100 UNITS/ML SUB-Q (17:42)
--- NOTE | 2021-02-15 18:46 | PC.NURSE ---
Aprox 1000 today I was called to the room by MOISES Rivera to help her because the patient's BP was low 70s SBP. Occupational therapy had been working with pt and pt indicated he wasnt feeling well. It was also seen during this time that he had had black tary stool. A stool sample was taken to lab and found to be positive for blood.Pts Blood draw to check H and H was ordered stat. Also 500ml Normal saline bolus was given. SBP approved to 90/50. Type and cross was done and H and H resulted at 8.4 and then 7.6. One unit PRB cells was ordered stat. The unit was started about 1215. A second IV was started if additional bolus was needed during blood administration. SBP stayed near 90. Pt cognitive status fluctuated through the day. His daughter Kaity was at bedside. Pt was evaluated at least every hour during blood transfusion and after. Pt had multiple dark, liquid stools through the day.Lolly DE LEON was updated through the day. Pt is to have EGD 02/16/21, CHRISTOPHER Sher was contacted for over the phone consent, consent is on chart. H and H one hour after blood draw was collected by lab and improved to 8.4. Lolly DE LEON was notified and said H and H will be repeated in 4 hours. Continue to check pt's BP Q4 hours.Pt is resting at this time with daughter at bedside. Will continue to monitor.
[2021-02-15 20:05] LABS: Hematocrit 24.1 % (42.0-52.0); Hemoglobin 7.6 g/dL (14.0-18.0)
[2021-02-15 21:15] LABS: Glucose Point of Care 258 (65-105)
[2021-02-16] VITALS (19 sets, daily range): BP systolic 86–127; BP diastolic 36–97; PULSE 62–98; RESP 14–20; TEMP 35.9–36.7; O2SAT 93–100
[2021-02-16 04:59] LABS: Basophils Percent Auto 0.1 % (0.2-1.2); Hematocrit 29.2 % (42.0-52.0); Hemoglobin 9.4 g/dL (14.0-18.0); Immature Granulocyte Absolute 0.24 K/mm3 (0.00-0.031); Immature Granulocyte Percent A 1.5 % (0-0.5); Lymphocytes Absolute Auto 0.28 K/mm3 (0.9-3.2); Lymphocytes Percent Auto 1.8 % (18.3-44.2); Mean Corpuscular HGB Conc 32.2 g/dl (32-36); Mean Corpuscular Hemoglobin 30.7 pg (26-34); Mean Corpuscular Volume 95.4 fl (80-100); Mean Platelet Volume 10.7 fl (7.4-10.4); Monocytes Absolute Auto 0.6 K/mm3 (0.1-0.6); Monocytes Percent Auto 3.9 % (2.6-8.5); Neutrophils Absolute Auto 14.4 K/mm3 (1.3-6.7); Neutrophils Percent Auto 92.7 % (45.5-73.1); Platelet Count Result 239 k/mm3 (150-375); Red Blood Count 3.06 M/mm3 (4.6-6.20); Red Cell Distribution Width 16.1 % (11.5-14.5); White Blood Count 15.6 K/mm3 (4.5-10.0)
[2021-02-16 05:24] LABS: Alanine Aminotransferase 17 U/L (4-50); Albumin Level 2.1 g/dL (3.5-5.1); Alkaline Phosphatase 57 U/L (38-126); Anion Gap 8 mmol/L (8-16); Aspartate Amino Transferase 43 U/L (17-59); Bilirubin,Total 0.6 mg/dL (0.2-1.3); Blood Urea Nitrogen 79 mg/dL (9-20); Calcium 7.6 mg/dL (8.4-10.2); Carbon Dioxide 16 mmol/L (22-30); Chloride 115 mmol/L (98-107); Estimated CRCL calculation 26 ml/min; Estimated Glomerular Filt Rate 32; Glucose 313 mg/dL (75-110); Magnesium 2.1 mg/dL (1.6-2.3); Potassium 5.4 mmol/L (3.4-5.0); Sodium 139 mmol/L (137-145)
[2021-02-16 05:26] LABS: INR 1.6; Prothrombin Time 19.4 Seconds (11.1-14.7)
[2021-02-16] MEDS: SODIUM CHLORIDE 0.9% IV 1,000 ML 100 ML IV CONT ×3 (05:43→21:06)
[2021-02-16] MEDS: PANTOPRAZOLE SODIUM IV 40 MG VIAL IV PUSH ×2 (08:18→21:06)
[2021-02-16] MEDS: ROSUVASTATIN 10 MG TABLET 20 MG PO (08:19)
[2021-02-16] MEDS: SILVERGEL (ELTA) 45 ML 1 APPLIC TOPICAL (08:19)
[2021-02-16 08:22] LABS: Glucose Point of Care 276 (65-105)
[2021-02-16] MEDS: INSULIN ASPART (*BKC) 100 UNITS/ML SUB-Q (08:28)
--- NOTE | 2021-02-16 11:47 | PCPTNOTE ---
The PT treatment was unable to be completed today. Verbal hold from RN due to patient's medical condition and multiple out of room tests today. Will continue per Plan of Care frequency and duration.
--- NOTE | 2021-02-16 11:49 | WPDANESEPPF ---
Anes - Initial Pre Proc Eval Procedure: Operation Date: 02/16/21 12:15 Proposed Procedures p Esophagogastroduodenoscopy - Randy Amaral MD Operation Date: 02/16/21 15:00 Proposed Procedures p Cystoscopy,Bilateral Stent Removal,Bilateral Retrograde Pyelogram - Florin Shultz MD Date/Time: 02/16/21 11:49 Surgeon: Ricardo Velazquez MD Pre Op Diagnosis: Urinary retention, UTI, shingles, Patient Data Age: 85 Gender: M Height: 5 ft 10 in Weight: 75 kg Last Vital Signs Temp 97.7 F 02/16/21 11:46 Pulse 92 02/16/21 11:46 Resp 16 02/16/21 11:46 BP 120/54 L 02/16/21 11:46 Pulse Ox 96 02/16/21 11:46 Allergies Allergy/AdvReac Type Severity Reaction Status Date / Time No Known Allergies Allergy Unknown Verified 02/16/21 11:42 Home Medications Medication Instructions Recorded Confirmed Type clopidogrel [Plavix] 75 mg PO DAILY 02/12/21 02/13/21 History doxazosin 4 mg PO DAILY 02/12/21 02/13/21 History empagliflozin [Jardiance] 10 mg PO DAILY 02/12/21 02/13/21 History finasteride 5 mg PO DAILY 02/12/21 02/13/21 History furosemide 20 mg PO DAILY 02/12/21 02/13/21 History lisinopril 20 mg PO DAILY 02/12/21 02/13/21 History rosuvastatin 20 mg PO DAILY 02/12/21 02/13/21 History aspirin [Adult Low Dose Aspirin] 81 mg PO DAILY 02/13/21 02/13/21 History gabapentin 100 mg PO TID 02/13/21 02/13/21 History hydrocodone-acetaminophen 1 tablet PO Q6H PRN 02/13/21 02/13/21 History hydroxyzine pamoate 50 mg PO Q6H PRN 02/13/21 02/13/21 History isosorbide mononitrate 30 mg PO DAILY 02/13/21 02/13/21 History metoprolol tartrate 50 mg PO BID 02/13/21 02/13/21 History silver sulfadiazine 1 applic TOPICAL DAILY 02/13/21 02/13/21 History Laboratory Tests 02/15/21 02/15/21 02/15/21 11:06 12:03 12:31 WBC RBC Hgb 7.6 g/dL L g/dL (14.0-18.0) Hct 23.8 % L % (42.0-52.0) MCV MCH MCHC RDW Plt Count MPV Immature Gran % (Auto) Neut % (Auto) Lymph % (Auto) [place] % (Auto) Eos % (Auto) Baso % (Auto) Lymph # (Auto) [place] # (Auto) Eos # (Auto) Baso # (Auto) Abs Immat Gran (auto) Absolute Neuts (auto) Absolute Nucleated RBC Nucleated RBC % PT INR Sodium Potassium Chloride Carbon Dioxide Anion Gap BUN Creatinine Estim Creat Clear Calc Estimated GFR Glucose POC Capillary Glucose 219 mg/dl H mg/dl (65-105) Calcium Magnesium Total Bilirubin AST ALT Alkaline Phosphatase Total Protein Albumin Blood Type A Positive Antibody Screen Negative Crossmatch See Detail 02/15/21 02/15/21 02/15/21 16:58 16:58 17:21 WBC 11.7 K/mm3 H K/mm3 (4.5-10.0) RBC 2.63 M/mm3 L M/mm3 (4.6-6.20) Hgb 8.4 g/dL L g/dL (14.0-18.0) Hct 26.1 % L % (42.0-52.0) MCV 99.2 fl fl (80-100) MCH 31.9 pg pg (26-34) MCHC 32.2 g/dl g/dl (32-36) RDW 15.4 % H % (11.5-14.5) Plt Count 230 k/mm3 k/mm3 (150-375) MPV 10.3 fl fl (7.4-10.4) Immature Gran % (Auto) 0.8 % H % (0-0.5) Neut % (Auto) 92.1 % H % (45.5-73.1) Lymph % (Auto) 2.7 % L % (18.3-44.2) [place] % (Auto) 4.0 % % (2.6-8.5) Eos % (Auto) 0.3 % % (0-4.4) Baso % (Auto) 0.1 % L % (0.2-1.2) Lymph # (Auto) 0.32 K/mm3 L K/mm3 (0.9-3.2) [place] # (Auto) 0.5 K/mm3 K/mm3 (0.1-0.6) Eos # (Auto) 0.0 K/mm3 K/mm3
[2021-02-16] MEDS: LACTATED RINGERS 1,000 ML 150 ML IV CONT (11:52)
[2021-02-16 11:55] LABS: Glucose Point of Care 236 (65-105)
[2021-02-16] MEDS: BENZOCAINE (*SP) 60 ML SPRAY CAN (HURRICAINE) 1 SPRAY MUCOUS MEM (12:06)
--- NOTE | 2021-02-16 12:45 | PCOTNOTE ---
Attempted OT treatment, patient is ok to continue Occupational therapy treatments, hold for today per RN due to patient's medical condition and multiple out of room tests today. Will follow and continue per Plan of Care frequency and duration tomorrow 02/17
--- NOTE | 2021-02-16 13:39 | WPDANESEFPP ---
Anes - Eval Final PreProcedure Day of Procedure 02/16/21 13:39 Patient weight: normal Heart: regular rate and rhythm Lungs: clear to auscultation and normal air movement Airway: Mallampati scale class III Neurological: lethargic Last oral intake: >/= 8 hours ASA classification: IV Emergent: no Anesthetic plan: proceed Anesthesia type and monitoring: general GIVS and standard monitoring Informed Consent: The patient's anesthetic plan and its attendant risks and benefits were discussed with the patient/family/POA. Questions were solicited and answers provided to the satisfaction of the patient/family/POA.
[2021-02-16] MEDS: LACTATED RINGERS 1,000 ML 30 ML IV CONT (13:57)
--- NOTE | 2021-02-16 14:24 | WPDHPUPDATE1 ---
History and Physical Update Update Date/Time: 02/16/21 14:24 See urology consult from 02/13/2021. Today, will plan cystoscopy with bilateral stent removal. History and Physical has been reviewed, including an updated exam of the patient. There are NO changes in the patient's condition. Risks, benefits, and alternatives have been discussed and questions answered. Patient agrees to proceed with procedure.
[2021-02-16] MEDS: LIDOCAINE HCL 2% GEL UROJET 10 ML PKG MUCOUS MEM (14:47)
--- NOTE | 2021-02-16 15:05 | PM.PROC ---
Procedure Note - Detailed Date of procedure: 02/16/21 Pre-op diagnosis: Urinary retention, UTI, shingles, Post-op diagnosis: same Procedure performed: Cystoscopy, bilateral stent removal Description of procedure: Patient is brought to the operative suite where he has prepped and draped in routine sterile fashion while in a dorsal lithotomy position. 2% xylocaine jelly was introduced intraurethrally and very minimal systemic sedation with monitoring and undertaken by the anesthesia department. Flexible cystoscopy is undertaken with a 16 F flexible cystoscope. Each indwelling ureteral stent is removed with ease. Because the patient cannot undergo months sedation at that against doing retrograde pyelography. Sixteen F urethral catheter was replaced. Anesthesia: MAC Surgeon: Florin Shultz MD Estimated blood loss (mL): 0 Drains: No Packing: No Pathology: none sent Complications: No immediate complications Condition: stable Disposition: PACU
[2021-02-16 15:23] LABS: Glucose Point of Care 218 (65-105)
--- NOTE | 2021-02-16 15:59 | PM.IMPN ---
Progress Note: A&P Assessment and Plan (1) Acute GI bleeding: Code(s): K92.2 - Gastrointestinal hemorrhage, unspecified Status: Acute Assessment and Plan: On 02/15/2021. patient developed melanotic stools and blood pressure was 70s systolic. Treated with IV fluids and blood transfusions. Hgb better today at 9.4 and BP more stable. EGD showed severe localized distal esophagitis, large hiatal hernia, moderate diffuse erosive gastritis and a duodenal ulcer at the bulb without signs of bleeding. Biopsies taken. Continue Protonix. Carafate added. Continue to monitor H&H closely. (2) Severe sepsis: Code(s): A41.9 - Sepsis, unspecified organism; R65.20 - Severe sepsis without septic shock Status: Acute Assessment and Plan: Met SEPSIS criteria with leukocytosis and tachycardia while in ED with urinary as suspected source with recent Cystoscopy with stent placement. Lactic acid WNL. Patient started on Rocephin in ED and given 1 dose; this was broadened to Zosyn and Vanc (vanc d/c 02/13/21 after 1 dose). BCx negative to date. Urine Culture shows no growth. Continue antibiotics at this time with IV Zosyn Leukocytosis worse today. Follow. Check CXR in the morning Continue monitoring. (3) Hypotension: Code(s): I95.9 - Hypotension, unspecified Status: Acute Assessment and Plan: Patient developed hypotension overnight 02/13/21 to 79/49 felt related to narcotic pain medications. He was given fluid boluses with improvement. Blood pressure remained soft at times requiring another fluid bolus. On 02/15, patient became hypotensive treated with IV fluids and transfusion ordered (Hgb 7.6); he also developed black stools consistent with GI bleed. Patient has received a totatl of 2U PRBC. BP more stable. Continue monitoring Hypotension related to acute blood loss anemia. (4) REX (acute kidney injury): Code(s): N17.9 - Acute kidney failure, unspecified Status: Acute Assessment and Plan: Cr 1.6 on admission. Cr improved initially but now has climbed to 2.0. [place] related to ATN from the [facility] and acute blood loss anemia. Hold home blood pressure and diuretics. Monitor (5) UTI (urinary tract infection): Code(s): N39.0 - Urinary tract infection, site not specified Status: Acute Assessment and Plan: UA suspicious for UTI. UCx shows no growth. Patient did have a recent urological procedure, with stent placement. Patient received one dose Rocephin in ED; broadened to Zosyn and vanc when admitted; vanc has been discontinued 02/13/21. Blood cultures negative at this time. Continue Zosyn for now. Monitor closely (6) Multiple kidney stones: Code(s): N20.0 - Calculus of kidney Status: Acute Assessment and Plan: Patient recently underwent lithotripsy and bilateral ureteral stent placement at [facility]. Urology consulted from ED and appreciate input. CT abd/pelvis shows multiple nonobstructing b/l stones; left stent in expected position; right internal ureteral stent with distal tip in the distal ureter; incidental b/l inguinal hernias noted - left contains nonobstructed colon, right contains fat. Urology removed stents today. Monitor (7) Acute urinary retention: Code(s): R33.8 - Other retention of urine Status: Acute Assessment and Plan: Likely from BPH. Continue Foster. Recent hematuria, could be from trauma. Will hopefully resolve with discontinuing anticoagulation. Will hold Proscar and Cardura due to hypotension. Appreciate Urology input (8) Generalized weakness: Code(s): R53.1 - Weakness St
[2021-02-16 16:52] LABS: Glucose Point of Care 195 (65-105)
[2021-02-16] MEDS: SUCRALFATE SUSP 100 MG/ML 10 ML UDC 1000 MG PO ×2 (17:16→21:06)
[2021-02-16 17:59] LABS: Hematocrit 24.7 % (42.0-52.0); Hemoglobin 8.2 g/dL (14.0-18.0)
[2021-02-16 20:17] LABS: Potassium 4.1 mmol/L (3.4-5.0)
[2021-02-16 21:55] LABS: Glucose Point of Care 195 (65-105)
[2021-02-16 23:23] LABS: Hematocrit 24.1 % (42.0-52.0)
[2021-02-17] VITALS (8 sets, daily range): BP systolic 94–126; BP diastolic 50–72; PULSE 50–107; RESP 16–20; TEMP 35.8–36.9; O2SAT 92–99; BMI 23.7
[2021-02-17 03:22] LABS: Basophils Percent Auto 0.1 % (0.2-1.2); Eosinophils Absolute Auto 0.1 K/mm3 (0-0.3); Hematocrit 22.8 % (42.0-52.0); Hemoglobin 7.7 g/dL (14.0-18.0); Immature Granulocyte Percent A 1.4 % (0-0.5); Lymphocytes Absolute Auto 0.42 K/mm3 (0.9-3.2); Mean Corpuscular HGB Conc 33.8 g/dl (32-36); Mean Corpuscular Hemoglobin 31.8 pg (26-34); Mean Corpuscular Volume 94.2 fl (80-100); Monocytes Percent Auto 7.3 % (2.6-8.5); Neutrophils Absolute Auto 12.2 K/mm3 (1.3-6.7); Neutrophils Percent Auto 87.2 % (45.5-73.1); Nucleated Red Blood Cells Perc 0.2 % (0.0-0.2); Platelet Count Result 219 k/mm3 (150-375); Red Blood Count 2.42 M/mm3 (4.6-6.20); Red Cell Distribution Width 17.3 % (11.5-14.5)
[2021-02-17 03:35] LABS: Lactic Acid Reflex 1.1 mmol/L (0.7-2.1)
[2021-02-17 03:37] LABS: Alanine Aminotransferase 21 U/L (4-50); Albumin Level 1.9 g/dL (3.5-5.1); Alkaline Phosphatase 57 U/L (38-126); Anion Gap 1 mmol/L (8-16); Aspartate Amino Transferase 77 U/L (17-59); Bilirubin,Total 0.2 mg/dL (0.2-1.3); Blood Urea Nitrogen 69 mg/dL (9-20); Calcium 7.7 mg/dL (8.4-10.2); Carbon Dioxide 20 mmol/L (22-30); Chloride 120 mmol/L (98-107); Estimated CRCL calculation 28 ml/min; Estimated Glomerular Filt Rate 34; Glucose 170 mg/dL (75-110); Magnesium 2.1 mg/dL (1.6-2.3); Phosphorus 1.9 mg/dL (2.5-4.5); Potassium 3.9 mmol/L (3.4-5.0); Sodium 141 mmol/L (137-145)
[2021-02-17] MEDS: SUCRALFATE SUSP 100 MG/ML 10 ML UDC 1000 MG PO ×4 (05:17→20:38)
[2021-02-17 06:04] LABS: Hematocrit 23.4 % (42.0-52.0); Hemoglobin 7.7 g/dL (14.0-18.0)
--- NOTE | 2021-02-17 07:04 | WPDUROPN2 ---
Progress Note: A&P Assessment and Plan (1) Multiple kidney stones: Code(s): N20.0 - Calculus of kidney Status: Acute Assessment and Plan: Seems to be doing fine with bilateral ureteral stents out. Serum creat stable @1.9. Should f/u with Dr. Carrasco in 4-weeks with a renal u/s. Subjective Subjective Date/Time Seen: 02/17/21 07:04 Seems to be doing well with ureteral stents out - no apparent abdominal pain Review of Systems Review of Systems: ROS unobtainable: Yes unobtainable due to mental status Exam Const: General: no acute distress Resp: Effort & Inspection: normal respiratory effort GI: Inspection: non-distended GI Palp: No abdominal tenderness and No Guarding due to palpation present (GI) Auscultation: normal bowel sounds Objective Data Vital Signs Vital Signs: Vital Signs - 24 hr 02/16/21 08:00 02/16/21 11:46 02/16/21 12:30 Temperature 98.1 F 97.7 F Pulse Rate 93 92 90 Respiratory Rate 18 16 16 Blood Pressure 100/62 120/54 L 114/97 H Pulse Oximetry 95 96 98 02/16/21 12:40 02/16/21 12:50 02/16/21 13:52 Temperature 97.0 F L Pulse Rate 78 93 94 Respiratory Rate 20 16 Blood Pressure 89/52 L 103/64 86/56 L Pulse Oximetry 98 100 94 02/16/21 14:57 02/16/21 15:05 02/16/21 15:25 Temperature 97.6 F Pulse Rate 96 86 86 Respiratory Rate 18 14 Blood Pressure 99/73 L 99/73 L 101/59 L Pulse Oximetry 100 100 100 02/16/21 15:40 02/16/21 15:55 02/16/21 16:10 Temperature 97.5 F L Pulse Rate 70 95 97 Respiratory Rate 16 18 16 Blood Pressure 101/59 L 106/57 L 110/61 Pulse Oximetry 98 97 100 02/16/21 16:25 02/16/21 16:59 02/16/21 20:00 Temperature 97.5 F L 97.2 F L 96.7 F L Pulse Rate 96 95 93 Respiratory Rate 18 18 20 Blood Pressure 112/59 L 127/61 126/70 Pulse Oximetry 100 100 94 02/16/21 21:45 02/17/21 00:00 02/17/21 04:00 Temperature 97.6 F 98.2 F Pulse Rate 93 95 91 Respiratory Rate 20 20 Blood Pressure 94/61 L 115/56 L Pulse Oximetry 94 93 92 Intake/Output Intake/Output: Intake & Output 02/14/21 02/15/21 02/16/21 02/17/21 23:59 23:59 23:59 23:59 Intake Total 820 1850 4220 850 Output Total 950 1500 650 850 Balance -431 272 2547 0 Meds/Results Medications: Active Medications Generic Name Dose Route Start Last Admin Trade Name Freq PRN Reason Stop Dose Admin Acetaminophen 650 mg 02/13/21 10:47 02/15/21 04:16 Acetaminophen 325 Mg Tablet PO 650 mg Q6H PRN Administration Mild Pain (1-5) Or Fever Dextrose 12.5 gm 02/12/21 23:47 Dextrose 50% 25 Gm/50 Ml Syringe IV PUSH PRN PRN Hypoglycemia Protocol Gabapentin 100 mg 02/15/21 14:31 Gabapentin 100 Mg Capsule PO TID PRN shingles pain Glucagon 1 mg 02/12/21 23:47 Glucagon For Inj 1 Mg Vial IM PRN PRN Hypoglycemia Protocol Glucose 15 gm 02/12/21 23:47 Glucose Oral Gel 15 Gm Of Glucse In 37.5 Gm Tube PO PRN PRN Hypoglycemia Protocol Dextrose 1,000 mls @ 100 mls/hr 02/12/21 23:47 Dextrose 5% 1,000 Ml IVPB PRN PRN Hypoglycemia Protocol Piperacillin/Tazobactam/Dextrose 3.375 gm in 50 mls @ 100 mls/hr 02/13/21 00:00 02/17/21 06:52 Zosyn 3.375 Gm/D5w 50ml Pm IVPB Infused Q6H PO[facility] Infusion Sodium Chloride 1,000 mls @ 100 mls/hr 02/15/21 10:35 02/16/21 21:06 Normal Saline Iv IV CONT 100 mls/hr .Q10H PO[facility]A Administration Lactated Ringer's 1,000 mls @ 30 mls/hr 02/16/21 13:40 02/16/21 16:03 Lr - Lactated Ringers Iv IV CONT Infused .Q24H [facility] Infusion Lactated Ringer's 1,000 mls @ 30 mls/hr 02/16/21 13:40 02/16/21 16:35 Lr - Lactated Ringers Iv IV CONT Not Given .Q24H [facility] Insulin Aspart 2 - 5 units 02/13/21 08:00 02/16/21 17:07 Insulin Aspart (*Bk) 100 Units/Ml SUB-Q Not Given TIDWM [facility] Protocol Ondansetron HCl 4 mg 02/12/21 23:47 Ondansetron Inj 4 Mg/2 Ml Vial IV PUSH Q6H PRN Nausea And Vomiting
[2021-02-17 08:24] LABS: Glucose Point of Care 152 (65-105)
[2021-02-17] MEDS: ACETAMINOPHEN 325 MG TABLET 650 MG PO ×2 (08:30→13:22)
[2021-02-17] MEDS: GABAPENTIN 100 MG CAPSULE PO ×3 (08:30→18:01)
[2021-02-17] MEDS: ROSUVASTATIN 10 MG TABLET 20 MG PO (08:30)
[2021-02-17] MEDS: SILVERGEL (ELTA) 45 ML 1 APPLIC TOPICAL (08:40)
[2021-02-17] MEDS: PANTOPRAZOLE SODIUM IV 40 MG VIAL IV PUSH ×2 (08:40→20:38)
--- NOTE | 2021-02-17 09:51 | WPDANESPN ---
Anes - Prog Note Post-Op Date/Time: 02/17/21 09:51 Cardiovascular status: normal Respiratory status: normal Airway patency: baseline Mental status: baseline Post-Op hydration status: normal Vital Signs: Last Vital Signs Temp 36.4 C 02/17/21 08:00 Pulse 60 02/17/21 08:22 Resp 16 02/17/21 08:22 BP 126/72 02/17/21 08:00 Pulse Ox 96 02/17/21 08:22 Pain Score (VAS): 3 I/O: Intake & Output 02/16/21 02/17/21 02/17/21 23:59 07:59 15:59 Intake Total 1170 850 Output Total 350 850 Balance 820 0 Laboratory Tests 02/17/21 05:52 02/17/21 03:14 02/16/21 02/16/21 02/16/21 11:53 15:19 16:29 WBC RBC Hgb Hct MCV MCH MCHC RDW Plt Count MPV Immature Gran % (Auto) Neut % (Auto) Lymph % (Auto) Dawson % (Auto) Eos % (Auto) Baso % (Auto) Lymph # (Auto) Dawson # (Auto) Eos # (Auto) Baso # (Auto) Abs Immat Gran (auto) Absolute Neuts (auto) Absolute Nucleated RBC Nucleated RBC % Sodium Potassium Chloride Carbon Dioxide Anion Gap BUN Creatinine Estim Creat Clear Calc Estimated GFR Glucose POC Capillary Glucose 236 H 218 H 195 H Lactic Acid Calcium Phosphorus Magnesium Total Bilirubin AST ALT Alkaline Phosphatase Total Protein Albumin Vitamin B12 Folate 02/16/21 02/16/21 02/16/21 17:54 19:55 21:14 WBC RBC Hgb 8.2 L Hct 24.7 L MCV MCH MCHC RDW Plt Count MPV Immature Gran % (Auto) Neut % (Auto) Lymph % (Auto) Dawson % (Auto) Eos % (Auto) Baso % (Auto) Lymph # (Auto) Dawson # (Auto) Eos # (Auto) Baso # (Auto) Abs Immat Gran (auto) Absolute Neuts (auto) Absolute Nucleated RBC Nucleated RBC % Sodium Potassium 4.1 Chloride Carbon Dioxide Anion Gap BUN Creatinine Estim Creat Clear Calc Estimated GFR Glucose POC Capillary Glucose 195 H Lactic Acid Calcium Phosphorus Magnesium Total Bilirubin AST ALT Alkaline Phosphatase Total Protein Albumin Vitamin B12 Folate 02/16/21 02/17/21 02/17/21 23:15 03:13 03:14 WBC 14.0 H RBC 2.42 L Hgb 8.0 L 7.7 L Hct 24.1 L 22.8 L MCV 94.2 MCH 31.8 MCHC 33.8 RDW 17.3 H Plt Count 219 MPV 10.0 Immature Gran % (Auto) 1.4 H Neut % (Auto) 87.2 H Lymph % (Auto) 3.0 L Dawson % (Auto) 7.3 Eos % (Auto) 1.0 Baso % (Auto) 0.1 L Lymph # (Auto) 0.42 L Dawson # (Auto) 1.0 H Eos # (Auto) 0.1 Baso # (Auto) 0.0 Abs Immat Gran (auto) 0.20 H Absolute Neuts (auto) 12.2 H Absolute Nucleated RBC 0.0 Nucleated RBC % 0.2 Sodium Potassium Chloride Carbon Dioxide Anion Gap BUN Creatinine Estim Creat Clear Calc Estimated GFR Glucose POC Capillary Glucose Lactic Acid 1.1 Calcium Phosphorus Magnesium Total Bilirubin AST ALT Alkaline Phosphatase Total Protein Albumin Vitamin B12 Folate 02/17/21 02/17/21 02/17/21 03:14 05:52 08:12 WBC RBC Hgb 7.7 L Hct 23.4 L MCV MCH MCHC RDW Plt Count MPV Immature Gran % (Auto) Neut % (Auto) Lymph % (Auto) Dawson % (Auto) Eos % (Auto) Baso % (Auto) Lymph # (Auto) Dawson # (Auto) Eos # (Auto) Baso # (Auto) Abs Immat Gran (auto) Absolute Neuts (auto) Absolute Nucleated RBC Nucleated RBC % Sodium 141 Potassium 3.9 Chloride 120 H Carbon Dioxide 20 L Anion Gap 1 L BUN 69 H D Creatinine 1.90 H Estim Creat Clear Calc 28 Estimated GFR 34 L Glucose 170 H POC Capillary Glucose 152 H Lactic Acid Calcium 7.7 L Phosphorus 1.9 L Magnesium 2.1 Total Bilirubin 0.2 AST 77 H ALT 21 Alkaline Phosphatase 57 Total Protein 4.0 L Albumin 1.9
--- NOTE | 2021-02-17 10:40 | PM.IMPN ---
Progress Note: A&P Assessment and Plan (1) Acute GI bleeding: Code(s): K92.2 - Gastrointestinal hemorrhage, unspecified Status: Acute Assessment and Plan: On 02/15/2021. patient developed melanotic stools and blood pressure was 70s systolic. Treated with IV fluids and blood transfusions. Hgb dropped slightly today to 7.7 but it is stable from last night. Blood pressure more stable today at 126/72. Will hold IV fluids at this time and monitor his p.o. intake. EGD showed severe localized distal esophagitis, large hiatal hernia, moderate diffuse erosive gastritis and a duodenal ulcer at the bulb without signs of bleeding. Biopsies taken. Continue Protonix. Carafate added. Continue to monitor H&H closely. (2) Severe sepsis: Code(s): A41.9 - Sepsis, unspecified organism; R65.20 - Severe sepsis without septic shock Status: Acute Assessment and Plan: Met SEPSIS criteria with leukocytosis and tachycardia while in ED with urinary as suspected source with recent Cystoscopy with stent placement. Lactic acid WNL. Patient started on Rocephin in ED and given 1 dose; this was broadened to Zosyn and Vanc (vanc d/c 02/13/21 after 1 dose). BCx negative to date. Urine Culture shows no growth. Continue antibiotics at this time with IV Zosyn and discontinue this evening 02/17/21. Leukocytosis improved today, but he had 2 procedures yesterday with EGD and stent removal. Follow. Chest x-ray shows possible atelectasis versus pneumonia, reviewing chest x-ray shows or likely atelectasis. He does not have any respiratory symptoms at this time. Continue monitoring. (3) Hypotension: Code(s): I95.9 - Hypotension, unspecified Status: Acute Assessment and Plan: Patient developed hypotension overnight 02/13/21 to 79/49 felt related to narcotic pain medications. He was given fluid boluses with improvement. Blood pressure remained soft at times requiring another fluid bolus. On 02/15, patient became hypotensive treated with IV fluids and transfusion ordered (Hgb 7.6); he also developed black stools consistent with GI bleed. Patient has received a totatl of 2U PRBC. Today BP more stable and H&H stable from last night. Continue monitoring Hypotension related to acute blood loss anemia. (4) REX (acute kidney injury): Code(s): N17.9 - Acute kidney failure, unspecified Status: Acute Assessment and Plan: Cr 1.6 on admission. Cr improved initially but now stable at 1.9 from yesterday. [place] related to ATN from the [facility] and acute blood loss anemia. Hold home blood pressure and diuretics. Monitor (5) UTI (urinary tract infection): Code(s): N39.0 - Urinary tract infection, site not specified Status: Acute Assessment and Plan: UA suspicious for UTI. UCx shows no growth. Patient did have a recent urological procedure, with stent placement. Patient received one dose Rocephin in ED; broadened to Zosyn and vanc when admitted; vanc has been discontinued 02/13/21. Blood cultures negative at this time. Continue Zosyn for now, but will discontinue this evening since ureteral stents were removed and EGD completed. Monitor closely (6) Multiple kidney stones: Code(s): N20.0 - Calculus of kidney Status: Acute Assessment and Plan: Patient recently underwent lithotripsy and bilateral ureteral stent placement at [facility]. Urology consulted from ED and appreciate input. CT abd/pelvis shows multiple nonobstructing b/l stones; left stent in expected position; right internal ureteral stent with distal tip in the distal ureter; incidental b/l inguinal hernias noted - left contains nonobstructed colon, right contains fat. Urology removed sten
--- NOTE | 2021-02-17 11:42 | PCNSR ---
On 02/17/21, the student, Giovana Garcia, provided care and completed [facility] documentation on this patient. I have reviewed the student's documentation and agree with the findings.
[2021-02-17 12:32] LABS: Glucose Point of Care 217 (65-105)
[2021-02-17] MEDS: INSULIN ASPART (*BKC) 100 UNITS/ML SUB-Q ×2 (12:40→18:00)
[2021-02-17] MEDS: POTASSIUM/PHOSPHORUS/SODIUM 1.5 GM PACKET 1 PACKET PO (12:49)
--- NOTE | 2021-02-17 14:05 | WPDGIPROGNO ---
Progress Note: A&P Assessment and Plan (1) Duodenal ulcer: Code(s): K26.9 - Duodenal ulcer, unspecified as acute or chronic, without hemorrhage or perforation Status: Acute Assessment and Plan: non-bleeding ulcer yesterday, also severe esophagitis will need news assistant ppi twice daily advance diet as tolerated (2) Erosive esophagitis: Code(s): K22.10 - Ulcer of esophagus without bleeding Status: Acute Assessment and Plan: also carafate (3) Acute blood loss anemia: Code(s): D62 - Acute posthemorrhagic anemia Status: Acute Assessment and Plan: mo more obvious signs of bleeding low hb but stable (4) Melena: Code(s): K92.1 - Melena Status: Acute (5) Severe sepsis: Code(s): A41.9 - Sepsis, unspecified organism; R65.20 - Severe sepsis without septic shock Status: Acute Assessment and Plan: from uti, on treatment (6) UTI (urinary tract infection): Code(s): N39.0 - Urinary tract infection, site not specified Status: Acute (7) Acute encephalopathy: Code(s): G93.40 - Encephalopathy, unspecified Status: Acute Assessment and Plan: seems improved today (8) Shingles: Code(s): B02.9 - Zoster without complications Status: Acute Assessment and Plan: resolving Subjective Date/time seen: 02/17/21 14:05 Interval history: he is more alert today, another of his daughter at bedside, he is having lunch (liquid diet), no more signs of bleeding. Review of Systems Review of Systems: All systems reviewed & are unremarkable except as noted in HPI and below Exam Const: General: ill appearing chronically Other: elderly, laying in bed, he is talking today and looks better HENMT: General nose exam: Normal nares present Eyes: General: appearance normal, both eyes and all related structures Neck: Neck: no JVD Resp: Auscultation: clear to auscultation bilaterally Cardio: Rate: regular rate GI: GI Palp: Yes Soft to palpation and No Guarding due to palpation present (GI) Auscultation: normal bowel sounds Urinary Catheter: Urinary Catheter: patent and draining Skin: Other: resolving shingles in left chest and back Neuro: Speech: normal speech Extrem: General: normal to inspection Psych: Other: alert and oriented today Objective Data Vital Signs Vital Signs: Vital Signs - 24 hr 02/16/21 14:57 02/16/21 15:05 02/16/21 15:25 Temperature 97.6 F Pulse Rate 96 86 86 Respiratory Rate 18 14 Blood Pressure 99/73 L 99/73 L 101/59 L Pulse Oximetry 100 100 100 02/16/21 15:40 02/16/21 15:55 02/16/21 16:10 Temperature 97.5 F L Pulse Rate 70 95 97 Respiratory Rate 16 18 16 Blood Pressure 101/59 L 106/57 L 110/61 Pulse Oximetry 98 97 100 02/16/21 16:25 02/16/21 16:59 02/16/21 20:00 Temperature 97.5 F L 97.2 F L 96.7 F L Pulse Rate 96 95 93 Respiratory Rate 18 18 20 Blood Pressure 112/59 L 127/61 126/70 Pulse Oximetry 100 100 94 02/16/21 21:45 02/17/21 00:00 02/17/21 04:00 Temperature 97.6 F 98.2 F Pulse Rate 93 95 91 Respiratory Rate 20 20 Blood Pressure 94/61 L 115/56 L Pulse Oximetry 94 93 92 02/17/21 08:00 02/17/21 08:22 02/17/21 12:00 Temperature 97.6 F 97.7 F Pulse Rate 91 60 50 L Respiratory Rate 16 16 16 Blood Pressure 126/72 105/60 Pulse Oximetry 99 96 97 Intake/Output Intake/Output: Intake & Output 02/14/21 02/15/21 02/16/21 02/17/21 23:59 23:59 23:59 23:59 Intake Total 820 1850 4220 970 Output Total 950 1500 650 850 Balance -999 856 7420 120 Meds/Results Medications: Active Medications Generic Name Dose Route Start Last Admin Trade Name Freq PRN Reason Stop Dose Admin Acetaminophen 650 mg 02/13/21 10:47 02/17/21 13:22 Acetaminophen 325 Mg Tablet PO 650 mg Q6H PRN Administration Mild Pain (1-5) Or Fever Dextrose 12.5 gm 02/12/21 23:47 Dextrose 50% 25 Gm/50 Ml Syringe IV PUSH PRN PRN Hypog
[2021-02-17] MEDS: HYDROcodone/acetaminophen (*CRX) 5-325 MG TABLET 1 TAB PO ×2 (14:28→21:14)
[2021-02-17 17:20] LABS: Glucose Point of Care 205 (65-105)
[2021-02-17 21:01] LABS: Glucose Point of Care 198 (65-105)
[2021-02-18] VITALS: BP 116/64; PULSE 87; RESP 18; TEMP 36.9; O2SAT 100
[2021-02-18 04:00] VITALS: BP 100/52; PULSE 82; RESP 16; TEMP 36.4; O2SAT 97
[2021-02-18] MEDS: SUCRALFATE SUSP 100 MG/ML 10 ML UDC 1000 MG PO ×4 (06:01→20:21)
[2021-02-18] MEDS: HYDROcodone/acetaminophen (*CRX) 5-325 MG TABLET 1 TAB PO ×4 (07:40→22:09)
[2021-02-18 07:53] LABS: Glucose Point of Care 117 (65-105)
[2021-02-18] MEDS: GABAPENTIN 100 MG CAPSULE PO ×3 (08:41→16:01)
[2021-02-18] MEDS: PANTOPRAZOLE SODIUM IV 40 MG VIAL IV PUSH ×2 (08:42→20:21)
[2021-02-18] MEDS: ROSUVASTATIN 10 MG TABLET 20 MG PO (08:42)
[2021-02-18] MEDS: SILVERGEL (ELTA) 45 ML 1 APPLIC TOPICAL (08:42)
[2021-02-18 10:00] VITALS: O2SAT 99
--- NOTE | 2021-02-18 10:52 | WPDGIPROGNO ---
Subjective Date/time seen: 02/18/21 10:52 Reason for consult was GI bleeding. This very pleasant gentleman is complaining of hurting all over. No nausea, vomiting or hematemesis. No melena. He has no appetite. Denies any chest pain or trouble breathing. Just does not feel well. Physical examination: General: very pleasant patient looks weak. HEENT: Head was normocephalic sclerae is clear mouth without masses neck was supple. Heart: Rate rhythm regular without S3 or S4. Lungs: CTA. Decreased in bases. Abdomen: Soft with no guarding or rigidity. Bowel sounds were active. Neurologic: Cranial nerves 2 through 12 intact. No focal defects. No clonus. Musculoskeletal system: Revealed no joint tenderness or swelling no muscle atrophy. Extremities: Reveal no significant edema. Skin: Warm and dry with normal turgor. Mental status: intact. Patient is alert and oriented. Flat affect. Impression: GI bleeding secondary to duodenal ulcer disease and erosive esophagitis. Anemia secondary to above. Coagulopathy. Prolonged prothrombin time noted. A KI. UTI. Hypotension multifactorial origin. This has improved. BPH/status post cystoscopy with ureteral stent placement. Electrolyte disorder with low phosphate. Malnutrition. HTN. HLD. DM. CVA. Renal lithiasis. Recommendation: Will repeat laboratory studies. Vitamin K. Encourage oral intake. Continue supportive care. If H&H remains stable can switch to oral PPI b.i.d.. Objective Data Vital Signs Vital Signs: Vital Signs - 24 hr 02/17/21 12:00 02/17/21 16:00 02/17/21 20:00 Temperature 36.5 C 36.9 C Pulse Rate 50 L 92 Respiratory Rate 16 16 Blood Pressure 105/60 102/50 L Pulse Oximetry 97 97 95 02/17/21 22:00 02/18/21 00:00 02/18/21 04:00 Temperature 35.8 C L 36.9 C 36.4 C Pulse Rate 107 H 87 82 Respiratory Rate 16 18 16 Blood Pressure 114/63 116/64 100/52 L Pulse Oximetry 95 100 97 02/18/21 10:00 Temperature Pulse Rate Respiratory Rate Blood Pressure Pulse Oximetry 99 Intake/Output Intake/Output: Intake & Output 02/15/21 02/16/21 02/17/21 02/18/21 23:59 23:59 23:59 23:59 Intake Total 1850 4220 1540 500 Output Total 6460 341 4261 450 Balance 350 3570 90 50 Meds/Results Medications: Active Medications Generic Name Dose Route Start Last Admin Trade Name Freq PRN Reason Stop Dose Admin Acetaminophen 650 mg 02/13/21 10:47 02/17/21 13:22 Acetaminophen 325 Mg Tablet PO 650 mg Q6H PRN Administration Mild Pain (1-5) Or Fever Hydrocodone Bitart/Acetaminophen 1 tab 02/17/21 14:11 02/18/21 07:40 Hydrocodone/Acetaminophen (*Crx) 5-325 Mg Tablet PO 1 tab Q4H PRN Administration Pain Rated 4-6 Calamine 1 applic 02/17/21 14:13 Calamine Lotion 120 Ml Bottle TOPICAL QAM PRN Itching Dextrose 12.5 gm 02/12/21 23:47 Dextrose 50% 25 Gm/50 Ml Syringe IV PUSH PRN PRN Hypoglycemia Protocol Gabapentin 100 mg 02/17/21 17:00 02/18/21 08:41 Gabapentin 100 Mg Capsule PO 100 mg TID POORNIMA Administration Glucagon 1 mg 02/12/21 23:47 Glucagon For Inj 1 Mg Vial IM PRN PRN Hypoglycemia Protocol Glucose 15 gm 02/12/21 23:47 Glucose Oral Gel 15 Gm Of Glucse In 37.5 Gm Tube PO PRN PRN Hypoglycemia Protocol Dextrose 1,000 mls @ 100 mls/hr 02/12/21 23:47 Dextrose 5% 1,000 Ml IVPB PRN PRN Hypoglycemia Protocol Piperacillin/Tazobactam/Dextrose 3.375 gm in 50 mls @ 100 mls/hr 02/13/21 00:00 02/18/21 06:32 Zosyn 3.375 Gm/D5w 50ml Pm IVPB Infused Q6H [facility] Infusion Lactated Ringer's 1,000 mls @ 30 mls/hr 02/16/21 13:40 02/17/21 07:29 Lr - Lactated Ringers Iv IV CONT Not Given .Q24H [facility] Lactated Ringer's 1,000 mls @ 30 mls/hr 02/16/21 13:40 02/17/21 12:41 Lr - Lactated Ringers Iv IV CONT Not Given .Q24H [facility] Insulin Aspart 2 - 5 units 02/13/21 08:00 02/18/21 08:41
--- NOTE | 2021-02-18 10:53 | PCOTNOTE ---
Patient declined OT therapy this AM due to severe shingle pain and feeling unwell. Nursing notified. Will attempt OT treatment at later time.
[2021-02-18 11:29] LABS: Hematocrit 25.8 % (42.0-52.0); Hemoglobin 8.3 g/dL (14.0-18.0); Mean Corpuscular HGB Conc 32.2 g/dl (32-36); Mean Corpuscular Hemoglobin 31.1 pg (26-34); Mean Corpuscular Volume 96.6 fl (80-100); Mean Platelet Volume 10.4 fl (7.4-10.4); Platelet Count Result 275 k/mm3 (150-375); Red Blood Count 2.67 M/mm3 (4.6-6.20); Red Cell Distribution Width 17.7 % (11.5-14.5); White Blood Count 13.9 K/mm3 (4.5-10.0)
[2021-02-18 11:32] LABS: INR 1.1; Prothrombin Time 15.1 Seconds (11.1-14.7)
[2021-02-18 11:36] LABS: Magnesium 2.1 mg/dL (1.6-2.3); Phosphorus 2.1 mg/dL (2.5-4.5)
[2021-02-18] MEDS: PHYTONADIONE INJ 10 MG/ML AMP SUB-Q (11:36)
[2021-02-18 11:44] LABS: Glucose Point of Care 172 (65-105)
[2021-02-18 11:48] LABS: LDL Cholesterol Direct 51 mg/dL
[2021-02-18 11:55] LABS: Alanine Aminotransferase 24 U/L (4-50); Albumin Level 2.5 g/dL (3.5-5.1); Alkaline Phosphatase 78 U/L (38-126); Anion Gap 3 mmol/L (8-16); Aspartate Amino Transferase 36 U/L (17-59); Bilirubin,Total 0.3 mg/dL (0.2-1.3); Blood Urea Nitrogen 54 mg/dL (9-20); Calcium 8.2 mg/dL (8.4-10.2); Carbon Dioxide 20 mmol/L (22-30); Chloride 119 mmol/L (98-107); Cholesterol 108 mg/dL (0-200); Estimated CRCL calculation 31 ml/min; Estimated Glomerular Filt Rate 39; Glucose 217 mg/dL (75-110); HDL Direct 38 mg/dL; Sodium 142 mmol/L (137-145); Triglycerides 129 mg/dL (<150)
[2021-02-18 13:03] LABS: T4 Thyroxine 4.93 ug/dL (5.53-11.0)
--- NOTE | 2021-02-18 13:10 | PM.IMPN ---
Progress Note: A&P Assessment and Plan (1) Acute GI bleeding: Code(s): K92.2 - Gastrointestinal hemorrhage, unspecified Status: Acute Assessment and Plan: On 02/15/2021, patient developed melanotic stools and blood pressure was 70s systolic. Treated with IV fluids and blood transfusions. Hgb stable at 8.3 today. Blood pressure more stable as well. EGD 02/16/21 showed severe localized distal esophagitis, large hiatal hernia, moderate diffuse erosive gastritis and a duodenal ulcer at the bulb without signs of bleeding. Biopsies taken. Continue Protonix and Carafate. Continue to monitor H&H closely. (2) Severe sepsis: Code(s): A41.9 - Sepsis, unspecified organism; R65.20 - Severe sepsis without septic shock Status: Acute Assessment and Plan: Met SEPSIS criteria with leukocytosis and tachycardia while in ED with urinary as suspected source with recent Cystoscopy with stent placement. Lactic acid WNL. CXR shows mild atelectasis at the lung bases. Patient started on Rocephin in ED and given 1 dose; this was broadened to Zosyn and Vanc (vanc d/c 02/13/21 after 1 dose). BCx negative to date. Urine Culture shows no growth. Repeat CXR showing worsened mild airspace opacities in right lower lung zone felt more likely atelectasis. Leukocytosis improved today. Will stop antibiotics. Follow. (3) Hypotension: Code(s): I95.9 - Hypotension, unspecified Status: Acute Assessment and Plan: Patient developed hypotension overnight 02/13/21 to 79/49 felt related to narcotic pain medications. He was given fluid boluses with improvement. Blood pressure remained soft at times requiring another fluid bolus. On 02/15, patient became hypotensive treated with IV fluids; he had developed black stools and transfusion ordered (Hgb 7.6). Patient has received a total of 2U PRBC. Today BP much more stable and H&H stable. Continue monitoring. Hypotension related to acute blood loss anemia. (4) REX (acute kidney injury): Code(s): N17.9 - Acute kidney failure, unspecified Status: Acute Assessment and Plan: Cr 1.6 on admission. Cr improved initially but now stable at 1.7. [place] related to ATN from the [facility] and acute blood loss anemia. Hold home blood pressure and diuretics. Monitor (5) UTI (urinary tract infection): Code(s): N39.0 - Urinary tract infection, site not specified Status: Acute Assessment and Plan: UA suspicious for UTI. UCx shows no growth. Patient did have a recent urological procedure, with stent placement. Patient received one dose Rocephin in ED; broadened to Zosyn and vanc when admitted; vanc has been discontinued 02/13/21. Blood cultures negative at this time. Stop Zosyn later today, since ureteral stents were removed and EGD completed. Monitor closely (6) Multiple kidney stones: Code(s): N20.0 - Calculus of kidney Status: Acute Assessment and Plan: Patient recently underwent lithotripsy and bilateral ureteral stent placement at [facility]. Urology consulted from ED and appreciate input. CT abd/pelvis shows multiple nonobstructing b/l stones; left stent in expected position; right internal ureteral stent with distal tip in the distal ureter; incidental b/l inguinal hernias noted - left contains nonobstructed colon, right contains fat. Urology removed stents 02/16/21. Monitor (7) Acute urinary retention: Code(s): R33.8 - Other retention of urine Status: Acute Assessment and Plan: Likely from BPH. Continue Foster. Recent hematuria felt to related to Foster trauma. This has resolved. Continue to hold Proscar and Cardura due to hypotension. Appreciate
--- NOTE | 2021-02-18 13:48 | PCOTNOTE ---
Patient declined OT treatment. Stating he had just gotten to bed and was in too much pain/not feeling well. Will attempt OT treatment at later time.
[2021-02-18 14:00] VITALS: BP 118/62; PULSE 93; RESP 20; TEMP 36.2; O2SAT 98
[2021-02-18] MEDS: POTASSIUM/PHOSPHORUS/SODIUM 1.5 GM PACKET 1 PACKET PO (15:54)
[2021-02-18] MEDS: LIDOCAINE 5% PATCH 1 PATCH TRANSDERM (15:54)
[2021-02-18] MEDS: INSULIN ASPART (*BKC) 100 UNITS/ML SUB-Q (16:48)
[2021-02-18 17:37] LABS: Glucose Point of Care 244 (65-105)
[2021-02-18 19:13] LABS: SARS-CoV-2 RNA PCR Negative
[2021-02-18 20:00] VITALS: PULSE 93; RESP 20; O2SAT 98
[2021-02-18 22:00] VITALS: BP 98/54; PULSE 48; RESP 16; TEMP 35.9; O2SAT 95
[2021-02-18 22:24] LABS: Glucose Point of Care 288 (65-105)
[2021-02-19] MEDS: SUCRALFATE SUSP 100 MG/ML 10 ML UDC 1000 MG PO ×4 (05:58→20:17)
[2021-02-19 06:00] VITALS: BP 108/62; PULSE 86; RESP 18; TEMP 36.1; O2SAT 100
[2021-02-19 06:39] LABS: Hematocrit 23.7 % (42.0-52.0); Hemoglobin 7.4 g/dL (14.0-18.0); Mean Corpuscular HGB Conc 31.2 g/dl (32-36); Mean Corpuscular Hemoglobin 30.8 pg (26-34); Mean Corpuscular Volume 98.8 fl (80-100); Mean Platelet Volume 10.2 fl (7.4-10.4); Platelet Count Result 236 k/mm3 (150-375); Red Cell Distribution Width 17.9 % (11.5-14.5); White Blood Count 10.8 K/mm3 (4.5-10.0)
[2021-02-19 07:01] LABS: Anion Gap -2 mmol/L (8-16); Blood Urea Nitrogen 50 mg/dL (9-20); Calcium 7.8 mg/dL (8.4-10.2); Carbon Dioxide 25 mmol/L (22-30); Chloride 120 mmol/L (98-107); Estimated CRCL calculation 33 ml/min; Estimated Glomerular Filt Rate 41; Glucose 194 mg/dL (75-110); Magnesium 2.1 mg/dL (1.6-2.3); Potassium 3.9 mmol/L (3.4-5.0); Sodium 143 mmol/L (137-145)
[2021-02-19] MEDS: ROSUVASTATIN 10 MG TABLET 20 MG PO (08:17)
[2021-02-19] MEDS: GABAPENTIN 100 MG CAPSULE PO ×3 (08:17→16:25)
[2021-02-19] MEDS: LIDOCAINE 5% PATCH 1 PATCH TRANSDERM (08:18)
[2021-02-19] MEDS: PANTOPRAZOLE SODIUM IV 40 MG VIAL IV PUSH ×2 (08:18→20:17)
[2021-02-19] MEDS: SILVERGEL (ELTA) 45 ML 1 APPLIC TOPICAL (08:19)
[2021-02-19 08:21] LABS: Glucose Point of Care 179 (65-105)
--- NOTE | 2021-02-19 09:03 | WPDGIPROGNO ---
Subjective Date/time seen: 02/19/21 09:03 Reason for visit upper GI bleeding. This very pleasant gentleman was reported to have couple of dark stools. No nausea, vomiting or hematemesis. No abdominal pain. He complains of some aches and pains. He denies any increasing shortness of breath. He has no appetite and no desire to eat. Physical examination: General: very pleasant gentleman. Appears ill. HEENT: Head was normocephalic sclerae is clear mouth without masses neck was supple. Heart: Rate rhythm regular without S3 or S4. Lungs: Decreased breath sounds in the bases. Abdomen: Soft with no guarding or rigidity. Bowel sounds were active. Neurologic: Cranial nerves 2 through 12 intact. No focal defects. No clonus. Musculoskeletal system: Revealed no joint tenderness or swelling no muscle atrophy. Extremities: Reveal no significant edema. Skin: Warm and dry with normal turgor. Mental status: intact. Patient is alert and oriented. Flat affect. Impression: GI bleeding secondary to duodenal ulcer disease and erosive esophagitis. Anemia secondary to above. The patient had a couple of dark stools. BUN/creatinine ratio decreasing. Coagulopathy. Prolonged prothrombin time noted. Pulmonary infiltrates. REX/CKD UTI. Hypotension multifactorial origin. This has improved. BPH/status post cystoscopy with ureteral stent placement/removal. Electrolyte disorder with low phosphate. Malnutrition. HTN. HLD. DM. CVA. Renal lithiasis. Recommendation: Continue to follow H&H. Continue PPI b.i.d.. Check chest x-ray. Patient on phosphate replacement. Encourage p.o. feedings and nutritional supplementation. Dr. Matos returns in a.m. for follow-up. Review of Systems Review of Systems: All systems reviewed & are unremarkable except as noted in HPI and below Objective Data Vital Signs Vital Signs: Vital Signs - 24 hr 02/18/21 10:00 02/18/21 14:00 02/18/21 20:00 Temperature 36.2 C L Pulse Rate 93 93 Respiratory Rate 20 20 Blood Pressure 118/62 Pulse Oximetry 99 98 98 02/18/21 22:00 02/19/21 06:00 Temperature 35.9 C L 36.1 C L Pulse Rate 48 L 86 Respiratory Rate 16 18 Blood Pressure 98/54 L 108/62 Pulse Oximetry 95 100 Intake/Output Intake/Output: Intake & Output 02/16/21 02/17/21 02/18/21 02/19/21 23:59 23:59 23:59 23:59 Intake Total 4220 1540 1190 300 Output Total 650 1450 800 450 Balance 3570 90 390 -150 Meds/Results Medications: Active Medications Generic Name Dose Route Start Last Admin Trade Name Freq PRN Reason Stop Dose Admin Acetaminophen 650 mg 02/13/21 10:47 02/17/21 13:22 Acetaminophen 325 Mg Tablet PO 650 mg Q6H PRN Administration Mild Pain (1-5) Or Fever Hydrocodone Bitart/Acetaminophen 1 tab 02/18/21 13:25 02/18/21 22:09 Hydrocodone/Acetaminophen (*Crx) 5-325 Mg Tablet PO 1 tab Q4H PRN Administration Pain Rated 6 or Greater Calamine 1 applic 02/17/21 14:13 Calamine Lotion 120 Ml Bottle TOPICAL QAM PRN Itching Dextrose 12.5 gm 02/12/21 23:47 Dextrose 50% 25 Gm/50 Ml Syringe IV PUSH PRN PRN Hypoglycemia Protocol Gabapentin 100 mg 02/17/21 17:00 02/19/21 08:17 Gabapentin 100 Mg Capsule PO 100 mg TID POORNIMA Administration Glucagon 1 mg 02/12/21 23:47 Glucagon For Inj 1 Mg Vial IM PRN PRN Hypoglycemia Protocol Glucose 15 gm 02/12/21 23:47 Glucose Oral Gel 15 Gm Of Glucse In 37.5 Gm Tube PO PRN PRN Hypoglycemia Protocol Dextrose 1,000 mls @ 100 mls/hr 02/12/21 23:47 Dextrose 5% 1,000 Ml IVPB PRN PRN Hypoglycemia Protocol Potassium Phosphate 20 mmol/ 256.6667 mls @ 62.5 mls/hr 02/19/21 08:12 Sodium Chloride IVPB 02/19/21 12:18 ONCE ONE Insulin Aspart 2 - 5 units 02/13/21 08:00 02/19/21 08:24 Insulin Aspart (*Bkc) 100 Units/Ml SUB-Q Not Given TIDWM POORNIMA Protocol Lidocaine 1 pat
[2021-02-19] MEDS: POTASSIUM PHOS,M-BASIC-D-BASIC 20 MMOL in SODIUM CHLORIDE 0.9% IV 250 ML 62.5 MMOL IVPB (09:25)
[2021-02-19] MEDS: CALAMINE LOTION 120 ML BOTTLE 1 APPLIC TOPICAL (09:39)
[2021-02-19 10:14] LABS: Hematocrit 25.7 % (42.0-52.0); Hemoglobin 8.2 g/dL (14.0-18.0); Mean Corpuscular HGB Conc 31.9 g/dl (32-36); Mean Corpuscular Hemoglobin 31.3 pg (26-34); Mean Corpuscular Volume 98.1 fl (80-100); Mean Platelet Volume 10.3 fl (7.4-10.4); Platelet Count Result 281 k/mm3 (150-375); Red Blood Count 2.62 M/mm3 (4.6-6.20); White Blood Count 16.5 K/mm3 (4.5-10.0)
[2021-02-19 10:26] LABS: Alanine Aminotransferase 23 U/L (4-50); Albumin Level 2.4 g/dL (3.5-5.1); Alkaline Phosphatase 89 U/L (38-126); Anion Gap 1 mmol/L (8-16); Aspartate Amino Transferase 27 U/L (17-59); Bilirubin,Total 0.2 mg/dL (0.2-1.3); Blood Urea Nitrogen 47 mg/dL (9-20); Calcium 8.1 mg/dL (8.4-10.2); Carbon Dioxide 23 mmol/L (22-30); Chloride 118 mmol/L (98-107); Estimated CRCL calculation 31 ml/min; Estimated Glomerular Filt Rate 39; Glucose 267 mg/dL (75-110); Magnesium 2.2 mg/dL (1.6-2.3); Potassium 3.9 mmol/L (3.4-5.0); Sodium 142 mmol/L (137-145)
[2021-02-19 11:50] LABS: Glucose Point of Care 238 (65-105)
[2021-02-19] MEDS: INSULIN ASPART (*BKC) 100 UNITS/ML SUB-Q ×2 (12:07→16:43)
[2021-02-19] MEDS: HYDROcodone/acetaminophen (*CRX) 5-325 MG TABLET 1 TAB PO (13:05)
[2021-02-19 14:00] VITALS: BP 127/67; PULSE 79; RESP 20; TEMP 36.5; O2SAT 98
--- NOTE | 2021-02-19 16:09 | PM.IMPN ---
Progress Note: A&P Assessment and Plan (1) Acute GI bleeding: Code(s): K92.2 - Gastrointestinal hemorrhage, unspecified Status: Acute Assessment and Plan: On 02/15/2021, patient developed melanotic stools and blood pressure was 70s systolic. Treated with IV fluids and blood transfusions. Hgb stable in the 7-8 range. Blood pressure more stable as well. EGD 02/16/21 showed severe localized distal esophagitis, large hiatal hernia, moderate diffuse erosive gastritis and a duodenal ulcer at the bulb without signs of bleeding. Biopsies taken. Continue Protonix and Carafate. Continue to monitor H&H closely. (2) Severe sepsis: Code(s): A41.9 - Sepsis, unspecified organism; R65.20 - Severe sepsis without septic shock Status: Acute Assessment and Plan: Met SEPSIS criteria with leukocytosis and tachycardia while in ED with urinary as suspected source with recent Cystoscopy with stent placement. Lactic acid WNL. CXR shows mild atelectasis at the lung bases. Patient started on Rocephin in ED and given 1 dose; this was broadened to Zosyn and Vanc (vanc d/c 02/13/21 after 1 dose). BCx negative to date. Urine Culture shows no growth. Repeat CXR showing persistent opacities at the right lung base and favor left paracardial fat pad. Leukocytosis improved today. Antibiotics stopped 02/18. Follow. (3) Hypotension: Code(s): I95.9 - Hypotension, unspecified Status: Acute Assessment and Plan: Patient developed hypotension overnight 02/13/21 to 79/49 felt related to narcotic pain medications. He was given fluid boluses with improvement. Blood pressure remained soft at times requiring another fluid bolus. On 02/15, patient became hypotensive treated with IV fluids; he had developed black stools and transfusion ordered (Hgb 7.6). Patient has received a total of 2U PRBC. Today BP much more stable and H&H stable. Continue monitoring. Hypotension related to acute blood loss anemia. (4) REX (acute kidney injury): Code(s): N17.9 - Acute kidney failure, unspecified Status: Acute Assessment and Plan: Cr 1.6 on admission. Cr improved initially but now stable at 1.6. [place] related to ATN from the [facility] and acute blood loss anemia. Hold home blood pressure and diuretics. Monitor (5) UTI (urinary tract infection): Code(s): N39.0 - Urinary tract infection, site not specified Status: Acute Assessment and Plan: UA suspicious for UTI. UCx shows no growth. Patient did have a recent urological procedure, with stent placement. Patient received one dose Rocephin in ED; broadened to Zosyn and vanc when admitted; vanc has been discontinued 02/13/21. Blood cultures negative at this time. Zosyn stopped 02/18/21. Monitor closely (6) Multiple kidney stones: Code(s): N20.0 - Calculus of kidney Status: Acute Assessment and Plan: Patient recently underwent lithotripsy and bilateral ureteral stent placement at [facility]. Urology consulted from ED and appreciate input. CT abd/pelvis shows multiple nonobstructing b/l stones; left stent in expected position; right internal ureteral stent with distal tip in the distal ureter; incidental b/l inguinal hernias noted - left contains nonobstructed colon, right contains fat. Urology removed stents 02/16/21. Monitor (7) Acute urinary retention: Code(s): R33.8 - Other retention of urine Status: Acute Assessment and Plan: Likely from BPH. Continue Foster. Recent hematuria felt to related to Foster trauma. This has resolved. Continue to hold Proscar and Cardura due to hypotension. Appreciate Urology input
[2021-02-19] MEDS: FUROSEMIDE INJ 40 MG/4 ML VIAL 20 MG IV PUSH (16:45)
[2021-02-19 16:46] LABS: Glucose Point of Care 347 (65-105)
[2021-02-19 21:45] VITALS: BP 123/76; PULSE 95; RESP 12; TEMP 37.3
[2021-02-20] MEDS: SUCRALFATE SUSP 100 MG/ML 10 ML UDC 1000 MG PO ×4 (05:49→20:18)
[2021-02-20 06:00] VITALS: BP 99/60; PULSE 65; RESP 20; TEMP 36.6; O2SAT 97
[2021-02-20 06:31] LABS: Hematocrit 23.4 % (42.0-52.0); Hemoglobin 7.4 g/dL (14.0-18.0); Mean Corpuscular HGB Conc 31.6 g/dl (32-36); Mean Corpuscular Hemoglobin 30.8 pg (26-34); Mean Corpuscular Volume 97.5 fl (80-100); Mean Platelet Volume 10.1 fl (7.4-10.4); Platelet Count Result 233 k/mm3 (150-375); Red Cell Distribution Width 17.3 % (11.5-14.5); White Blood Count 10.2 K/mm3 (4.5-10.0)
[2021-02-20 06:42] LABS: Albumin Level 2.2 g/dL (3.5-5.1); Anion Gap 0 mmol/L (8-16); Blood Urea Nitrogen 39 mg/dL (9-20); Calcium 7.8 mg/dL (8.4-10.2); Carbon Dioxide 24 mmol/L (22-30); Chloride 116 mmol/L (98-107); Estimated CRCL calculation 33 ml/min; Estimated Glomerular Filt Rate 41; Glucose 197 mg/dL (75-110); Phosphorus 2.2 mg/dL (2.5-4.5); Potassium 3.7 mmol/L (3.4-5.0); Sodium 140 mmol/L (137-145)
[2021-02-20] MEDS: POTASSIUM PHOS,M-BASIC-D-BASIC 20 MMOL in SODIUM CHLORIDE 0.9% IV 250 ML 62.5 MMOL IVPB (07:49)
[2021-02-20] MEDS: INSULIN DETEMIR 100 UNITS/ML SUB-Q (08:19)
[2021-02-20 08:20] LABS: Glucose Point of Care 176 (65-105)
[2021-02-20] MEDS: SILVERGEL (ELTA) 45 ML 1 APPLIC TOPICAL (08:22)
[2021-02-20] MEDS: PANTOPRAZOLE SODIUM IV 40 MG VIAL IV PUSH ×2 (08:23→20:19)
[2021-02-20] MEDS: LIDOCAINE 5% PATCH 1 PATCH TRANSDERM (08:23)
[2021-02-20] MEDS: GABAPENTIN 100 MG CAPSULE PO ×3 (08:23→17:02)
[2021-02-20] MEDS: ROSUVASTATIN 10 MG TABLET 20 MG PO (08:24)
[2021-02-20] MEDS: ACETAMINOPHEN 325 MG TABLET 650 MG PO (11:36)
--- NOTE | 2021-02-20 11:45 | PCNFU ---
Nutrition Follow-Up Complete: Inadequate oral intake related to esophagitis and possible GI bleed as evidenced by clear liquid diet order. Goal: Patient to consume 75% or more of meals on current diet order once diet advances. Patient is progressing towards goal. We will continue current goal. Pt current nutrition is soft and bite sized, Level 6 Last recorded weight is 75 kg-stable. Bowel Motility:+BM reported 02/19 Labs Reviewed:GFR 41,BUN 39,PO4 2.2,Alb 2.2,Hgb 7.4,Hct 23.4 Meds Noted:Protonix,Levemir, Crestor, NovoLog. Additional Notes: Patient seen today for nutrition follow up. Oral Intake has been about 25% of meals. He states the food has been good. He is also receiving Ensure compact BID providing an additional 220 kcals and 9 gms protein. He states he is drinking those as well. He had no diet concerns at this time. Monitor patients labs, medications, weight, and oral intake every 3 days.
[2021-02-20] MEDS: INSULIN ASPART (*BKC) 100 UNITS/ML SUB-Q ×2 (12:34→16:59)
[2021-02-20 12:35] LABS: Glucose Point of Care 255 (65-105)
[2021-02-20 14:00] VITALS: BP 120/58; PULSE 89; RESP 20; TEMP 36.5; O2SAT 90
--- NOTE | 2021-02-20 14:17 | WPDGIPROGNO ---
Progress Note: A&P Assessment and Plan (1) Duodenal ulcer: Code(s): K26.9 - Duodenal ulcer, unspecified as acute or chronic, without hemorrhage or perforation Status: Acute Assessment and Plan: severe esophagitis and duodenal ulcer bx consistent with ulcer in esophagus, no H pylori continue with ppi twice daily (will need long-term) and carafate tolerating diet, slowly eating more (2) Erosive esophagitis: Code(s): K22.10 - Ulcer of esophagus without bleeding Status: Acute Assessment and Plan: PPI bid and carafate sometimes with reflux symptoms (3) Acute blood loss anemia: Code(s): D62 - Acute posthemorrhagic anemia Status: Acute Assessment and Plan: mo more obvious signs of bleeding low hb but stable (4) Melena: Code(s): K92.1 - Melena Status: Acute (5) Severe sepsis: Code(s): A41.9 - Sepsis, unspecified organism; R65.20 - Severe sepsis without septic shock Status: Acute Assessment and Plan: from uti, on treatment resolved (6) UTI (urinary tract infection): Code(s): N39.0 - Urinary tract infection, site not specified Status: Acute (7) Acute encephalopathy: Code(s): G93.40 - Encephalopathy, unspecified Status: Acute Assessment and Plan: improving (8) Shingles: Code(s): B02.9 - Zoster without complications Status: Acute Assessment and Plan: resolved Subjective Date/time seen: 02/20/21 14:17 Interval history: he is eating more, daughter at bedside Review of Systems Review of Systems: All systems reviewed & are unremarkable except as noted in HPI and below Exam Const: General: ill appearing chronically Other: frail elderly, sitting up and eating, good spirits today HENMT: General nose exam: Normal nares present Eyes: General: appearance normal, both eyes and all related structures Neck: Neck: no JVD Resp: Auscultation: clear to auscultation bilaterally Cardio: Rate: regular rate GI: GI Palp: Yes Soft to palpation and No Guarding due to palpation present (GI) Auscultation: normal bowel sounds Urinary Catheter: Urinary Catheter: patent and draining Skin: Other: resolving shingles in left chest and back Neuro: Speech: normal speech Extrem: General: normal to inspection and pedal edema (trace) Psych: Other: alert and oriented today Objective Data Vital Signs Vital Signs: Vital Signs - 24 hr 02/19/21 21:45 02/20/21 06:00 Temperature 99.1 F 97.9 F Pulse Rate 95 65 Respiratory Rate 12 20 Blood Pressure 123/76 99/60 L Pulse Oximetry 97 Intake/Output Intake/Output: Intake & Output 02/17/21 02/18/21 02/19/21 02/20/21 23:59 23:59 23:59 23:59 Intake Total 1540 1190 1457 490 Output Total 5077 669 1660 850 Balance 90 390 307 -360 Meds/Results Medications: Active Medications Generic Name Dose Route Start Last Admin Trade Name Freq PRN Reason Stop Dose Admin Acetaminophen 650 mg 02/13/21 10:47 02/20/21 11:36 Acetaminophen 325 Mg Tablet PO 650 mg Q6H PRN Administration Mild Pain (1-5) Or Fever Hydrocodone Bitart/Acetaminophen 1 tab 02/18/21 13:25 02/19/21 13:05 Hydrocodone/Acetaminophen (*Crx) 5-325 Mg Tablet PO 1 tab Q4H PRN Administration Pain Rated 6 or Greater Calamine 1 applic 02/17/21 14:13 02/19/21 09:39 Calamine Lotion 120 Ml Bottle TOPICAL 1 applic QAM PRN Administration Itching Dextrose 12.5 gm 02/12/21 23:47 Dextrose 50% 25 Gm/50 Ml Syringe IV PUSH PRN PRN Hypoglycemia Protocol Gabapentin 100 mg 02/17/21 17:00 02/20/21 12:37 Gabapentin 100 Mg Capsule PO 100 mg TID POORNIMA Administration Glucagon 1 mg 02/12/21 23:47 Glucagon For Inj 1 Mg Vial IM PRN PRN Hypoglycemia Protocol Glucose 15 gm 02/12/21 23:47 Glucose Oral Gel 15 Gm Of Glucse In 37.5 Gm Tube PO PRN PRN Hypoglycemia Protocol Dextrose 1,00
--- NOTE | 2021-02-20 16:00 | PM.IMPN ---
Progress Note: A&P Assessment and Plan (1) Acute GI bleeding: Code(s): K92.2 - Gastrointestinal hemorrhage, unspecified Status: Acute Assessment and Plan: On 02/15/2021, patient developed melanotic stools and blood pressure was 70s systolic. Treated with IV fluids and blood transfusions. EGD 02/16/21 showed severe localized distal esophagitis, large hiatal hernia, moderate diffuse erosive gastritis and a duodenal ulcer at the bulb without signs of bleeding. Biopsies taken. Hgb stable in the 7-8 range. Blood pressure more stable as well. Continue Protonix and Carafate. Continue to monitor H&H closely. Appreciate GI input. Patient ready for discharge and has been accepted at two facilities. CM awaiting family to decide lovation. The patient's is on hospice at home and this is consuming much of their time and focus. Met with dtr at bedside earlier in the day and hospital course discussed (2) Severe sepsis: Code(s): A41.9 - Sepsis, unspecified organism; R65.20 - Severe sepsis without septic shock Status: Acute Assessment and Plan: Met sepsis criteria with leukocytosis and tachycardia while in ED with urinary as suspected source with recent Cystoscopy with stent placement. Lactic acid WNL. CXR shows mild atelectasis at the lung bases. Patient given Rocephin in ED but changed to Zosyn and Vanc (vanc d/c 02/13/21 after 1 dose). BCx negative to date. Urine Culture shows no growth. Repeat CXR 02/19 showing persistent opacities at the right lung base and favor left paracardial fat pad. Doubt PNA at this time. Leukocytosis improved. Antibiotics stopped 02/18. Follow. (3) Hypotension: Code(s): I95.9 - Hypotension, unspecified Status: Acute Assessment and Plan: Patient developed hypotension overnight 02/13/21 to 79/49 felt related to narcotic pain medications. He was given fluid boluses with improvement. Blood pressure remained soft at times requiring another fluid bolus. On 02/15, patient became hypotensive and he had developed black stools; treated with IV fluids and transfusion ordered (Hgb 7.6). Hypotension related to acute blood loss anemia. Patient has received a total of 2U PRBC. Today BP still soft at times but overall much better controlled. H&H low but stable in the 7-8 range. Continue monitoring. (4) REX (acute kidney injury): Code(s): N17.9 - Acute kidney failure, unspecified Status: Acute Assessment and Plan: Cr 1.6 on admission. Cr worsened to 2.0 but now stable at 1.6. [place] related to ATN from the [facility] and acute blood loss anemia. His home blood pressure and diuretics remain on hold. Monitor (5) UTI (urinary tract infection): Code(s): N39.0 - Urinary tract infection, site not specified Status: Acute Assessment and Plan: UA suspicious for UTI. UCx shows no growth. Patient did have a recent urological procedure, with stent placement. Patient received one dose Rocephin in ED; broadened to Zosyn and vanc when admitted; vanc has been discontinued 02/13/21. Blood cultures negative at this time. Zosyn stopped 02/18/21. Monitor closely (6) Multiple kidney stones: Code(s): N20.0 - Calculus of kidney Status: Acute Assessment and Plan: Patient recently underwent lithotripsy and bilateral ureteral stent placement at [facility]. Urology consulted from ED and appreciate input. CT abd/pelvis shows multiple nonobstructing b/l stones; left stent in expected position; right internal ureteral stent with distal tip in the distal ureter; incidental b/l inguinal hernias noted - left contains nonobstructed colon, right contains fat. Urology removed stents 02/16/21. Monitor. Foster remains in place __
[2021-02-20 17:00] LABS: Glucose Point of Care 292 (65-105)
[2021-02-20] MEDS: HYDROcodone/acetaminophen (*CRX) 5-325 MG TABLET 1 TAB PO (18:57)
[2021-02-20 21:25] LABS: Glucose Point of Care 315 (65-105)
[2021-02-20 22:00] VITALS: BP 132/69; PULSE 100; RESP 18; TEMP 37.2; O2SAT 96
[2021-02-21] MEDS: SUCRALFATE SUSP 100 MG/ML 10 ML UDC 1000 MG PO ×4 (05:29→21:08)
[2021-02-21] MEDS: ACETAMINOPHEN 325 MG TABLET 650 MG PO (05:32)
[2021-02-21 06:00] VITALS: BP 149/75; PULSE 78; RESP 18; TEMP 36.6; O2SAT 99
[2021-02-21 06:18] LABS: Hematocrit 25.3 % (42.0-52.0); Mean Corpuscular HGB Conc 31.6 g/dl (32-36); Mean Corpuscular Hemoglobin 30.3 pg (26-34); Mean Corpuscular Volume 95.8 fl (80-100); Mean Platelet Volume 9.8 fl (7.4-10.4); Platelet Count Result 248 k/mm3 (150-375); Red Blood Count 2.64 M/mm3 (4.6-6.20); Red Cell Distribution Width 16.9 % (11.5-14.5); White Blood Count 9.6 K/mm3 (4.5-10.0)
[2021-02-21 06:28] LABS: Albumin Level 2.2 g/dL (3.5-5.1); Anion Gap 4 mmol/L (8-16); Blood Urea Nitrogen 31 mg/dL (9-20); Calcium 7.9 mg/dL (8.4-10.2); Carbon Dioxide 22 mmol/L (22-30); Chloride 113 mmol/L (98-107); Estimated CRCL calculation 37 ml/min; Estimated Glomerular Filt Rate 48; Glucose 207 mg/dL (75-110); Magnesium 1.9 mg/dL (1.6-2.3); Phosphorus 2.2 mg/dL (2.5-4.5); Potassium 3.8 mmol/L (3.4-5.0); Sodium 139 mmol/L (137-145)
[2021-02-21 08:00] VITALS: PULSE 78; RESP 18; O2SAT 99
[2021-02-21 08:26] LABS: Glucose Point of Care 203 (65-105)
[2021-02-21] MEDS: ROSUVASTATIN 10 MG TABLET 20 MG PO (09:42)
[2021-02-21] MEDS: GABAPENTIN 100 MG CAPSULE PO ×3 (09:42→18:08)
[2021-02-21] MEDS: LIDOCAINE 5% PATCH 1 PATCH TRANSDERM (10:10)
[2021-02-21] MEDS: PANTOPRAZOLE SODIUM IV 40 MG VIAL IV PUSH ×2 (10:10→21:12)
[2021-02-21] MEDS: SILVERGEL (ELTA) 45 ML 1 APPLIC TOPICAL (10:15)
--- NOTE | 2021-02-21 11:26 | PCOTNOTE ---
Attempted to see Patient for his OT treatment session at this time. Patients family declined right now due to just letting him know his has past away. Patient very upset but family would like for therapy to try back this afternoon.
[2021-02-21 13:31] LABS: Glucose Point of Care 244 (65-105)
--- NOTE | 2021-02-21 13:31 | PCPTNOTE ---
The PT treatment was unable to be completed today due to patient refusal. Patient informed today that his has . Will continue per Plan of Care frequency and duration.
[2021-02-21 14:00] VITALS: BP 116/74; PULSE 99; RESP 20; TEMP 36.7; O2SAT 96
[2021-02-21] MEDS: INSULIN DETEMIR 100 UNITS/ML 10 UNITS SUB-Q (14:19)
--- NOTE | 2021-02-21 14:20 | PM.IMPN ---
Progress Note: A&P Assessment and Plan (1) Acute GI bleeding: Code(s): K92.2 - Gastrointestinal hemorrhage, unspecified Status: Resolved Assessment and Plan: On 02/15/2021, patient developed melanotic stools and blood pressure was 70s systolic. Treated with IV fluids and blood transfusions. EGD 02/16/21 showed severe localized distal esophagitis, large hiatal hernia, moderate diffuse erosive gastritis and a duodenal ulcer at the bulb without signs of bleeding. Biopsies taken. Hgb stable in the 7-8 range. Blood pressure more stable as well. Continue Protonix and Carafate. No further bleeding described. (2) Severe sepsis: Code(s): A41.9 - Sepsis, unspecified organism; R65.20 - Severe sepsis without septic shock Status: Acute Assessment and Plan: CXR shows mild atelectasis at the lung bases. Patient given Rocephin in ED but changed to Zosyn and Vanc (vanc d/c 02/13/21 after 1 dose). BCx negative to date. Urine Culture shows no growth. (3) Hypotension: Code(s): I95.9 - Hypotension, unspecified Status: Acute Assessment and Plan: Interval history : Patient developed hypotension overnight 02/13/21 to 79/49 felt related to narcotic pain medications. He was given fluid boluses with improvement. Blood pressure remained soft at times requiring another fluid bolus. On 02/15, patient became hypotensive and he had developed black stools; treated with IV fluids and transfusion ordered (Hgb 7.6). Hypotension related to acute blood loss anemia. Patient has received a total of 2U PRBC. Bp is stable. (4) REX (acute kidney injury): Code(s): N17.9 - Acute kidney failure, unspecified Status: Acute Assessment and Plan: Cr 1.6 on admission. Cr is 1.4 now. (5) UTI (urinary tract infection): Code(s): N39.0 - Urinary tract infection, site not specified Status: Acute Assessment and Plan: Interval history :UA suspicious for UTI. UCx shows no growth. Patient did have a recent urological procedure, with stent placement. Patient received one dose Rocephin in ED; broadened to Zosyn and vanc when admitted; vanc has been discontinued 02/13/21. Blood cultures negative at this time. Zosyn stopped 02/18/21. (6) Multiple kidney stones: Code(s): N20.0 - Calculus of kidney Status: Acute Assessment and Plan: Interval history : Patient recently underwent lithotripsy and bilateral ureteral stent placement at [facility]. Urology consulted from ED and appreciate input. CT abd/pelvis shows multiple nonobstructing b/l stones; left stent in expected position; right internal ureteral stent with distal tip in the distal ureter; incidental b/l inguinal hernias noted - left contains nonobstructed colon, right contains fat. Urology removed stents 02/16/21. (7) Acute urinary retention: Code(s): R33.8 - Other retention of urine Status: Acute Assessment and Plan: Likely from BPH. Continue Foster. (8) Generalized weakness: Code(s): R53.1 - Weakness Status: Acute Assessment and Plan: Likely secondary to infection and recent hospitalization and from the shingles. (9) Shingles: Code(s): B02.9 - Zoster without complications Status: Acute Assessment and Plan: Treat symptomatically and with local wound care. Wound Care consult recommended silver gel to open wound and cover with mepilex. Lesions are drying up well. He has Tylenol and Adrian for pain control. Gabapentin has been scheduled. Lidocaine patch to intact skin. Continue symptomatic care. (10) Acute encephalopathy: Code(s): G93.40 - En
--- NOTE | 2021-02-21 14:30 | PCOTNOTE ---
Attempted to see Patient for P.M. treatment session. Patients daughter verbalized he has been very upset today with his passing away. Patient is now sleeping and needs some rest. Family requested, for us to try back tomorrow.
--- NOTE | 2021-02-21 15:40 | WPDGIPROGNO ---
Progress Note: A&P Assessment and Plan (1) Duodenal ulcer: Code(s): K26.9 - Duodenal ulcer, unspecified as acute or chronic, without hemorrhage or perforation Status: Acute Assessment and Plan: severe esophagitis and duodenal ulcer bx consistent with ulcer in esophagus, no H pylori he was started on ppi twice daily (will need flight communications operator) and carafate tolerating diet no more signs of bleeding, will follow from afar (2) Erosive esophagitis: Code(s): K22.10 - Ulcer of esophagus without bleeding Status: Acute Assessment and Plan: PPI bid and carafate intermittent reflux symptoms (3) Acute blood loss anemia: Code(s): D62 - Acute posthemorrhagic anemia Status: Acute Assessment and Plan: mo more obvious signs of bleeding low hb but stable (4) Melena: Code(s): K92.1 - Melena Status: Acute (5) Severe sepsis: Code(s): A41.9 - Sepsis, unspecified organism; R65.20 - Severe sepsis without septic shock Status: Acute Assessment and Plan: from uti, on treatment resolved (6) UTI (urinary tract infection): Code(s): N39.0 - Urinary tract infection, site not specified Status: Acute (7) Acute encephalopathy: Code(s): G93.40 - Encephalopathy, unspecified Status: Acute Assessment and Plan: improving (8) Shingles: Code(s): B02.9 - Zoster without complications Status: Acute Assessment and Plan: resolved Subjective Date/time seen: 02/21/21 15:40 Interval history: unfortunately his just passed today (she was in hospice) and patient is feeling quite down. Daughter is here Review of Systems Review of Systems: All systems reviewed & are unremarkable except as noted in HPI and below Exam Const: General: ill appearing chronically Other: frail elderly,very sad today HENMT: General nose exam: Normal nares present Eyes: General: appearance normal, both eyes and all related structures Neck: Neck: no JVD Resp: Auscultation: clear to auscultation bilaterally Cardio: Rate: regular rate GI: GI Palp: Yes Soft to palpation and No Guarding due to palpation present (GI) Auscultation: normal bowel sounds Urinary Catheter: Urinary Catheter: patent and draining Skin: Other: resolving shingles in left chest and back Neuro: Speech: normal speech Extrem: General: normal to inspection and pedal edema (trace) Psych: Affect: Sad affect present Other: alert and oriented today Objective Data Vital Signs Vital Signs: Vital Signs - 24 hr 02/20/21 22:00 02/21/21 06:00 02/21/21 08:00 Temperature 98.9 F 97.9 F Pulse Rate 100 78 78 Respiratory Rate 18 18 18 Blood Pressure 132/69 149/75 H Pulse Oximetry 96 99 99 Intake/Output Intake/Output: Intake & Output 02/18/21 02/19/21 02/20/21 02/21/21 23:59 23:59 23:59 23:59 Intake Total 1190 1457 1860 300 Output Total 800 1150 1600 650 Balance 390 307 260 -350 Meds/Results Medications: Active Medications Generic Name Dose Route Start Last Admin Trade Name Freq PRN Reason Stop Dose Admin Acetaminophen 650 mg 02/13/21 10:47 02/21/21 05:32 Acetaminophen 325 Mg Tablet PO 650 mg Q6H PRN Administration Mild Pain (1-5) Or Fever Hydrocodone Bitart/Acetaminophen 1 tab 02/18/21 13:25 02/20/21 18:57 Hydrocodone/Acetaminophen (*Crx) 5-325 Mg Tablet PO 1 tab Q4H PRN Administration Pain Rated 6 or Greater Calamine 1 applic 02/17/21 14:13 02/19/21 09:39 Calamine Lotion 120 Ml Bottle TOPICAL 1 applic QAM PRN Administration Itching Dextrose 12.5 gm 02/12/21 23:47 Dextrose 50% 25 Gm/50 Ml Syringe IV PUSH PRN PRN Hypoglycemia Protocol Gabapentin 100 mg 02/17/21 17:00 02/21/21 11:00 Gabapentin 100 Mg Capsule PO 100 mg TID POORNIMA Administration Glucagon 1 mg 02/12/21 23:47 Glucagon For Inj 1 Mg Vial IM PRN PRN Hypoglycemia Protocol Glucose 15
[2021-02-21 17:54] LABS: Glucose Point of Care 267 (65-105)
[2021-02-21] MEDS: ALPRAZolam (*CRX) 0.25 MG TABLET PO (17:55)
[2021-02-21 18:07] LABS: SARS-CoV-2 RNA PCR Negative
[2021-02-21] MEDS: CALAMINE LOTION 120 ML BOTTLE 1 APPLIC TOPICAL (20:02)
[2021-02-21 21:34] LABS: Glucose Point of Care 300 (65-105)
[2021-02-21 22:00] VITALS: BP 118/70; PULSE 96; RESP 18; TEMP 36.6; O2SAT 99
[2021-02-22] MEDS: SUCRALFATE SUSP 100 MG/ML 10 ML UDC 1000 MG PO ×2 (05:46→11:03)
[2021-02-22 06:00] VITALS: BP 114/72; PULSE 83; RESP 16; TEMP 36.4; O2SAT 100
[2021-02-22 08:00] VITALS: PULSE 83; RESP 16; O2SAT 100
[2021-02-22 08:03] LABS: Glucose Point of Care 123 (65-105)
[2021-02-22] MEDS: PANTOPRAZOLE SODIUM IV 40 MG VIAL IV PUSH (08:50)
[2021-02-22] MEDS: GABAPENTIN 100 MG CAPSULE PO ×2 (08:51→14:27)
[2021-02-22] MEDS: ROSUVASTATIN 10 MG TABLET 20 MG PO (08:52)
[2021-02-22] MEDS: LIDOCAINE 5% PATCH 1 PATCH TRANSDERM (08:52)
[2021-02-22] MEDS: SILVERGEL (ELTA) 45 ML 1 APPLIC TOPICAL (08:53)
[2021-02-22] MEDS: INSULIN DETEMIR 100 UNITS/ML 10 UNITS SUB-Q (08:54)
--- NOTE | 2021-02-22 09:33 | PCOTNOTE ---
Attempted to see patient this am, however patient declined. Daughter at bedside at this time. Pt upset and grieving loss of . Pt not seen for this reason.
--- NOTE | 2021-02-22 11:09 | ECG_ITS ---
Measurements Intervals [place] Rate: 84 P: 35 MA: 198 QRS: 3 QRSD: 130 T: 99 QT: 365 QTc: 434 Interpretive Statements SINUS RHYTHM VENTRICULAR PREMATURE COMPLEXES EARLY PRECORDIAL R/S TRANSITION BORDERLINE ST-T WAVE ABNORMALITY- ANTEROLAT/HIGH LAT LEADS BORDERLINE ECG Electronically Signed On 02-22-2021 11:24:06 CDT by Chris Vickers D.O.
[2021-02-22 11:41] LABS: Vitamin D 1,25 (OH)2 Total 30 pg/mL (18-72); Vitamin D2 1,25 (OH)2 <8 pg/mL; Vitamin D3 1,25 (OH)2 30 pg/mL
--- NOTE | 2021-02-22 12:26 | PM.IMPN ---
Progress Note: A&P Assessment and Plan (1) Acute GI bleeding: Code(s): K92.2 - Gastrointestinal hemorrhage, unspecified Status: Resolved Assessment and Plan: On 02/15/2021, patient developed melanotic stools and blood pressure was 70s systolic. Treated with IV fluids and blood transfusions. EGD 02/16/21 showed severe localized distal esophagitis, large hiatal hernia, moderate diffuse erosive gastritis and a duodenal ulcer at the bulb without signs of bleeding. Biopsies taken. Hgb stable in the 7-8 range. Blood pressure more stable as well. Continue Protonix and Carafate. No further bleeding described. Pt seen by Gi. (2) Severe sepsis: Code(s): A41.9 - Sepsis, unspecified organism; R65.20 - Severe sepsis without septic shock Status: Acute Assessment and Plan: CXR shows mild atelectasis at the lung bases. Patient given Rocephin in ED but changed to Zosyn and Vanc (vanc d/c 02/13/21 after 1 dose). BCx negative to date. Urine Culture shows no growth. (3) Hypotension: Code(s): I95.9 - Hypotension, unspecified Status: Acute Assessment and Plan: Interval history : Patient developed hypotension overnight 02/13/21 to 79/49 felt related to narcotic pain medications. He was given fluid boluses with improvement. Blood pressure remained soft at times requiring another fluid bolus. On 02/15, patient became hypotensive and he had developed black stools; treated with IV fluids and transfusion ordered (Hgb 7.6). Hypotension related to acute blood loss anemia. Patient has received a total of 2U PRBC. Bp is stable. (4) REX (acute kidney injury): Code(s): N17.9 - Acute kidney failure, unspecified Status: Acute Assessment and Plan: Cr 1.6 on admission. Cr is 1.4 now. (5) UTI (urinary tract infection): Code(s): N39.0 - Urinary tract infection, site not specified Status: Acute Assessment and Plan: Interval history :UA suspicious for UTI. UCx shows no growth. Patient did have a recent urological procedure, with stent placement. Patient received one dose Rocephin in ED; broadened to Zosyn and vanc when admitted; vanc has been discontinued 02/13/21. Blood cultures negative at this time. Zosyn stopped 02/18/21. (6) Multiple kidney stones: Code(s): N20.0 - Calculus of kidney Status: Acute Assessment and Plan: Interval history : Patient recently underwent lithotripsy and bilateral ureteral stent placement at [facility]. Urology consulted from ED and appreciate input. CT abd/pelvis shows multiple nonobstructing b/l stones; left stent in expected position; right internal ureteral stent with distal tip in the distal ureter; incidental b/l inguinal hernias noted - left contains nonobstructed colon, right contains fat. Urology removed stents 02/16/21. (7) Acute urinary retention: Code(s): R33.8 - Other retention of urine Status: Acute Assessment and Plan: Likely from BPH. Continue Foster. (8) Generalized weakness: Code(s): R53.1 - Weakness Status: Acute Assessment and Plan: Likely secondary to infection and recent hospitalization and from the shingles. (9) Shingles: Code(s): B02.9 - Zoster without complications Status: Acute Assessment and Plan: Treat symptomatically and with local wound care. Wound Care consult recommended silver gel to open wound and cover with mepilex. Lesions are drying up well. He has Tylenol and [place] for pain control. Gabapentin has been scheduled. Lidocaine patch to intact skin. Continue symptomatic care. (10) Acute encephalopathy: Code(s
[2021-02-22 12:29] LABS: Glucose Point of Care 176 (65-105)
[2021-02-22 14:00] VITALS: BP 96/60; PULSE 83; RESP 20; TEMP 36.6; O2SAT 99
--- NOTE | 2021-02-22 14:08 | PCPTNOTE ---
The PT treatment was held today due to change in patient's medical condition. Will continue per Plan of Care frequency and duration.
[2021-02-22] MEDS: ASPIRIN 325 MG TABLET PO (14:27)
[2021-02-22] MEDS: NITROGLYCERIN SL 0.4 MG TABLET SUBLINGUAL ×2 (15:18→15:24)
--- NOTE | 2021-02-22 15:31 | ECG_ITS ---
Measurements Intervals [place] Rate: 95 P: 33 ME: 182 QRS: -8 QRSD: 129 T: 101 QT: 348 QTc: 439 Interpretive Statements SINUS RHYTHM VENTRICULAR COUPLETS AND VENTRICULAR PREMATURE COMPLEX EARLY PRECORDIAL R/S TRANSITION INFERIOR INFARCT, AGE INDETERMINATE BORDERLINE ST-T WAVE ABNORMALITY- ANTEROLAT/HIGH LAT LEADS ABNORMAL ECG Electronically Signed On 02-22-2021 15:57:14 CDT by Chris Vickers D.O.
--- NOTE | 2021-02-22 15:57 | PM.CNCAR ---
Assessment and Plan Assessment and plan (1) NSTEMI (non-ST elevated myocardial infarction): Code(s): I21.4 - Non-ST elevation (NSTEMI) myocardial infarction Status: Acute Assessment and Plan: Patient is having a non-STEMI with waxing and waning chest discomfort. EKG actually looks better than EKG obtained on 02/12/2021 but troponins are significantly elevated. We are very limited with available treatment for this particular patient; he runs a low blood pressure which limits therapy. With his recent significant GI bleed requiring transfusions heparinization would be a potentially bad idea. Certainly aggressive care with PCI and the need for dual anti-platelet therapy is not an option with the recent GI bleed. He was started on ASA. I think the best we can do is keep him comfortable with morphine and, if blood pressure allows, beta-blockers and nitrates, provide supportive care and see how things return clerk. (2) Hypotension: Code(s): I95.9 - Hypotension, unspecified Status: Acute Assessment and Plan: Intermittent low blood pressure from anemia, GI bleeding, medications, and cardiac issues. (3) Acute blood loss anemia: Code(s): D62 - Acute posthemorrhagic anemia Status: Acute Assessment and Plan: Recent GI bleed; H&H is stable although still anemic. (4) Recent bereavement: Code(s): Z63.4 - Disappearance and of family member Status: Acute Assessment and Plan: yesterday. Additional Plan Spoke to the patient's daughter and she is tells me the patient does not want resuscitation, heroic measures etcetera and feels that the patient has had too many major health and psychologic stressors recently, and has given up and would like to and join his . The patient seems very lucid at this time and appropriate. He thought the pain he had earlier was probably heart pain. He is missing his . He would like comfort care at this time and does not want aggressive measures such as CPR, a lot of testing etc.. Comfort care seems appropriate since there is little else we can offer wrt his heart problems at this time. History of Present Illness History of Present Illness Consult date/time: 02/22/21 15:57 Requesting physician: Che Leahy MD Consult reason: chest pain Reason For Visit: Urinary retention, UTI, shingles, Narrative: Ant Sher is an unfortunate 85-year-old male who was initially to [place] for severe shingles pain, then transferred here for Foster trauma and urologic bleeding and a sepsis like picture thought to be related to his recent cystoscopy and urologic stent. On February 15 he became hypotensive and had melena, was in shock secondary to GI bleeding. He was transfused., discussion with the daughter with that she did not want any heroic measures. He is a DNR. He later had endoscopy which showed severe esophagitis, erosive gastritis and a duodenal ulcer. Related to narcotics. He also has had encephalopathy. The patient's unfortunately yesterday and the family informed him of her . Overnight the patient had increased confusion and agitation complained of some left upper chest pain which was initially thought to be shingles pain but there was concern that there may be another etiology. Troponin was obtained and is elevated at 3.9. EKG showed some mild < 1mm ST depression in V V4 and V5. He was transferred to IMU. I had started him on metoprolol but his blood pressure was 96 so that was held. He was still complaining of a lot of chest discomfort and I ordered morphine 2 mg. He is more comfortable now, chest discomfort has improved a lot. History of remote CABG and another cardiac procedure about 10 years ago CHF, hypertension hyperlipidemia. Review of Systems Constituti
[2021-02-22] MEDS: MORPHINE SULFATE (*CRX) 2 MG/ML INJ IV PUSH ×2 (15:58→16:59)
[2021-02-22 16:00] VITALS: BP 101/54; PULSE 88; RESP 22; TEMP 36.1; O2SAT 99
--- NOTE | 2021-02-22 17:33 | PC.NURSE ---
1313 CALLED [facility] AND THAT PT WILL BE TRANSFERED TO IMU [id number]
--- NOTE | 2021-02-22 17:34 | PC.NURSE ---
This patient, Ant Sher, was transferred to [ IMU] on 02/22/21 at 1500. Personal belongings sent with patient. Report given to [ ]. Appropriate documentation sent with patient.
[2021-02-22] MEDS: LORazepam INJ (*CRX) 2 MG/ML VIAL IV PUSH (18:00)
[2021-02-22 20:00] VITALS: BP 81/65; PULSE 82; PULSE 90; RESP 16; TEMP 35.9; O2SAT 97
[2021-02-23] VITALS: PULSE 82; RESP 16; O2SAT 97
[2021-02-23 04:00] VITALS: PULSE 85; RESP 16; O2SAT 97
[2021-02-23 05:25] LABS: Estimated CRCL calculation 37 ml/min; Estimated Glomerular Filt Rate 48
--- NOTE | 2021-02-23 14:59 | PM.DDS ---
Discharge Sum: Prov Provider Primary care physician: Ady Payne MD Admitting provider: Yimi Carnes MD Discharge Sum: Diag PCOD Assessment and Plan (1) NSTEMI Pt had elevated troponin and intermittent chest pains, pt seen by cardiology treated conservatively with morphine and, if blood pressure allows, beta-blockers and nitrates. Pt feels like he has been through alot already, including recent bereavement of his , pt and family are in agreement for comfort care measures only. (1) Acute GI bleeding: Code(s): K92.2 - Gastrointestinal hemorrhage, unspecified Status: Resolved Assessment and Plan: On 02/15/2021, patient developed melanotic stools and blood pressure was 70s systolic. Treated with IV fluids and blood transfusions. EGD 02/16/21 showed severe localized distal esophagitis, large hiatal hernia, moderate diffuse erosive gastritis and a duodenal ulcer at the bulb without signs of bleeding. Biopsies taken during EGD. Pt has recent lost his , pt is very remorseful. Pt has decided to go comfort care. (2) Severe sepsis: Code(s): A41.9 - Sepsis, unspecified organism; R65.20 - Severe sepsis without septic shock Status: Acute Assessment and Plan: CXR shows mild atelectasis at the lung bases. Patient given Rocephin in ED but changed to Zosyn and Vanc (vanc d/c 02/13/21 after 1 dose). BCx negative to date. Urine Culture shows no growth. Pt has decided to go comfort care. (3) Hypotension: Code(s): I95.9 - Hypotension, unspecified Status: Acute Assessment and Plan: Interval history : Patient developed hypotension overnight 02/13/21 to 79/49 felt related to narcotic pain medications. He was given fluid boluses with improvement. Blood pressure remained soft at times requiring another fluid bolus. On 02/15, patient became hypotensive and he had developed black stools; treated with IV fluids and transfusion ordered (Hgb 7.6). Hypotension related to acute blood loss anemia. Patient has received a total of 2U PRBC. Bp still remains low, pt has decided to go comfort care. (4) REX (acute kidney injury): Code(s): N17.9 - Acute kidney failure, unspecified Status: Acute Assessment and Plan: Cr 1.6 on admission. Cr is 1.4 now. (5) UTI (urinary tract infection): Code(s): N39.0 - Urinary tract infection, site not specified Status: Acute Assessment and Plan: Interval history :UA suspicious for UTI. UCx shows no growth. Patient did have a recent urological procedure, with stent placement. Patient received one dose Rocephin in ED; broadened to Zosyn and vanc when admitted; vanc has been discontinued 02/13/21. Blood cultures negative at this time. Zosyn stopped 02/18/21. Pt has decided to go comfort care. (6) Multiple kidney stones: Code(s): N20.0 - Calculus of kidney Status: Acute Assessment and Plan: Interval history : Patient recently underwent lithotripsy and bilateral ureteral stent placement at [facility]. Urology consulted from ED and appreciate input. CT abd/pelvis shows multiple nonobstructing b/l stones; left stent in expected position; right internal ureteral stent with distal tip in the distal ureter; incidental b/l inguinal hernias noted - left contains nonobstructed colon, right contains fat. Urology removed stents 02/16/21. Pt has decided to go comfort care. (7) Acute urinary retention: Code(s): R33.8 - Other retention of urine Status: Acute Assessment and Plan: Likely from BPH. Continue Foster.Pt has decided to go comfort care (8) Generalized weakness: Code(s): R53.1 - Weakness Status: Acute Assessment and Plan: Likely secondary to infection and re
== END 2021-02-23 07:58 | disposition expired | DRG 698 ==
LOC: ANHED 22:59 → ANH3MEDSUR 02-13 02:27 → ANHIMU 02-24 10:36
PROVIDERS: Family Medicine; Internal Medicine; Internal Medicine Cardiovascular Disease; Internal Medicine Gastroenterology; Physician Assistant; Urology; Admitting Provider Family Medicine; Emergency Provider Emergency Medicine; PCP Family Medicine; Visit Provider Internal Medicine
PROC: 0DJ08ZZ Inspection of Upper Intestinal Tract, Via Natural or Artificial Opening Endoscopic (ICD-10-PCS; CPT 43235; principal; 2021-02-16 12:15)
PROC: 0TP98DZ Removal of Intraluminal Device from Ureter, Via Natural or Artificial Opening Endoscopic (ICD-10-PCS; CPT 52352; principal; 2021-02-16 15:00)
DX: T83.592A Infection and inflammatory reaction due to indwelling ureteral stent, initial encounter (principal); A41.9 Sepsis, unspecified organism; R65.20 Severe sepsis without septic shock; I21.4 Non-ST elevation (NSTEMI) myocardial infarction; I63.9 Cerebral infarction, unspecified; G93.41 Metabolic encephalopathy; N17.0 Acute kidney failure with tubular necrosis; K26.0 Acute duodenal ulcer with hemorrhage; K22.11 Ulcer of esophagus with bleeding; N39.0 Urinary tract infection, site not specified; D62 Acute posthemorrhagic anemia; E46 Unspecified protein-calorie malnutrition; D68.9 Coagulation defect, unspecified; J98.11 Atelectasis; T83.511A Infection and inflammatory reaction due to indwelling urethral catheter, initial encounter; Z20.822 Contact with and (suspected) exposure to COVID-19; Z68.23 Body mass index [BMI] 23.0-23.9, adult; N20.0 Calculus of kidney; K29.70 Gastritis, unspecified, without bleeding; K44.9 Diaphragmatic hernia without obstruction or gangrene; I95.9 Hypotension, unspecified; N40.1 Benign prostatic hyperplasia with lower urinary tract symptoms; R33.8 Other retention of urine; I11.0 Hypertensive heart disease with heart failure; I50.9 Heart failure, unspecified; E86.0 Dehydration; B02.9 Zoster without complications; Z87.442 Personal history of urinary calculi; Z63.4 Disappearance and death of family member; R57.8 Other shock
CPT/HCPCS: 36415; 36430; 51702; 70450; 71045; 71046; 74176; 80048; 80053; 80061; 80069; 80076; 81001; 82274; 82565; 82607; 82652; 82746; 82948; 83036; 83605; 83735; 84100; 84132; 84436; 84443; 84484; 85014; 85018; 85025; 85027; 85610; 86140; 86850; 86900; 86901; 86923; 87040; 87081; 87086; 88305; 92523; 93005; 96361; 96374; 97110; 97116; 97161; 97165; 97530; 97535; 99285; A9270; C1769; C9113; C9803; J0696; J1650; J1815; J1940; J2060; J2270; J2370; J2543; J2704; J3370; J3430; J7030; J7040; J7050; J7120; J7512; P9016; Q9966; U0003; U0005